=== PATIENT | female | born 1965 | race Caucasian/White ===

== ENCOUNTER → 2018-07-04 16:23 | Outpatient (CLI) | payer OTHER, SELFPAY ==
[2018-07-12 13:32] LABS: HPV APTIMA, High Risk Negative (Negative)
[2018-07-12 14:17] LABS: HPV Reflexed? YES, CHARGE PATIENT
== END ==
PROVIDERS: Visit Provider Obstetrics & Gynecology
DX: Z12.4 Encounter for screening for malignant neoplasm of cervix (principal)
CPT/HCPCS: 87624; 88175; G0145

== ENCOUNTER 2021-12-20 11:17 | Outpatient (CLI) | payer OTHER, SELFPAY ==
--- NOTE | 2021-12-20 11:23 | US_ITS ---
STUDY: ULTRASOUND OF THE FEMALE PELVIS - COMPLETE REASON FOR EXAM: Female, 56 years old. POST JUAN BLEEDING LMP: Patient is postmenopausal. TECHNIQUE: Transabdominal and Transvaginal TECHNICAL QUALITY: Adequate. COMPARISON: None. FINDINGS: The uterus is anteverted and is in a midline position. The uterus measures 8.3 cm x 5.7 cm x 4 cm. There is a Nabothian cyst of the cervix. The endometrium measures 4.2 mm in thickness, and is heterogeneous (striated). There is no demonstrated endometrial mass. Heterogeneous appearance of the uterine myometrium suggesting fibroid change of the lateral no focal fibroid is seen. I.U.D. - The patient does not have an I.U.D. The right ovary is visualized. The right ovary measures 1.9 cm x 1.1 cm x 0.9 cm. There is no right ovarian cyst or ovarian mass. There is no visualized right adnexal mass or complex lesion. There is normal arterial and normal venous vascularity. The left ovary is visualized. The left ovary measures 2.8 cm x 1.2 cm x 1.4 cm. There is no left ovarian cyst or ovarian mass. There is no visualized left adnexal mass or complex lesion. There is normal arterial and normal venous vascularity. There is no fluid in the cul-de-sac. The pre void volume of the bladder was 160 ml. US/Transvaginal Non- IMPRESSION: Heterogeneous appearance of the myometrium suggestive of fibroid change although no focal fibroid is seen. Electronically Signed: Talon Jacobson MD at 13:04 EDT ,
--- NOTE | 2021-12-20 11:32 | US_ITS ---
STUDY: ULTRASOUND OF THE FEMALE PELVIS - COMPLETE REASON FOR EXAM: Female, 56 years old. POST JUAN BLEEDING LMP: Patient is postmenopausal. TECHNIQUE: Transabdominal and Transvaginal TECHNICAL QUALITY: Adequate. COMPARISON: None. FINDINGS: The uterus is anteverted and is in a midline position. The uterus measures 8.3 cm x 5.7 cm x 4 cm. There is a Nabothian cyst of the cervix. The endometrium measures 4.2 mm in thickness, and is heterogeneous (striated). There is no demonstrated endometrial mass. Heterogeneous appearance of the uterine myometrium suggesting fibroid change of the lateral no focal fibroid is seen. I.U.D. - The patient does not have an I.U.D. The right ovary is visualized. The right ovary measures 1.9 cm x 1.1 cm x 0.9 cm. There is no right ovarian cyst or ovarian mass. There is no visualized right adnexal mass or complex lesion. There is normal arterial and normal venous vascularity. The left ovary is visualized. The left ovary measures 2.8 cm x 1.2 cm x 1.4 cm. There is no left ovarian cyst or ovarian mass. There is no visualized left adnexal mass or complex lesion. There is normal arterial and normal venous vascularity. There is no fluid in the cul-de-sac. The pre void volume of the bladder was 160 ml. US/Pelvic (Non ) IMPRESSION: Heterogeneous appearance of the myometrium suggestive of fibroid change although no focal fibroid is seen. Electronically Signed: Talon Jacobson MD at 13:04 EDT ,
== END 2021-12-20 23:59 | disposition home or self-care (01) ==
LOC: US 11:20
PROVIDERS: Referring Provider Physician Assistant; Visit Provider Physician Assistant
DX: N95.0 Postmenopausal bleeding (principal)
CPT/HCPCS: 76830; 76856

== ENCOUNTER 2022-01-04 13:14 | Outpatient (CLI) | payer OTHER, SELFPAY ==
--- NOTE | 2022-01-04 10:45 | EMB_PTH ---
PATIENT: MISTY ANDERSEN LOC: [facility] U#:[id number] AGE/SX: 56/F ROOM: RE01/04/[address]: Dr. Ronak Cho MD : [id number] BED: DIS: 01/04/2022 SPEC #: [id number] RECD: 01/04/22 14:45 STATUS: NATHANAEL TAYLER #: [id number] ANDRZEJ: 01/04/22 10:[address]: Ronak Cho DEPT: SURGICAL PATHOLOGY RECD BY: Manju Armenta Tissues: Endometrium, NOS Procedures: Surgery Specimen Level IV HEADER OPERATION: Endometrial biopsy PRE-OP DIAGNOSIS: PMB TISSUE SUBMITTED: Endometrial biopsy MICROSCOPIC DIAGNOSIS Endometrium, biopsy: Fragments of weakly proliferative endometrium with focal glandular breakdown. AM:halley 01/06/2022 MICROSCOPIC DESCRIPTION Slides are reviewed. GROSS DESCRIPTION Received in fixative is one container labeled with the patient's name and designated endometrial biopsy. The specimen consists of multiple fragments of conway mucoid tissue mixed with hemorrhagic soft tissue that in aggregate measure 2 x 2 x 0.2 cm. The specimen is totally submitted in one cassette. / SJ:halley 01/05/2022 TC:5 CPT: 85413
[2022-01-10 15:34] LABS: HPV Reflexed? NOT INDICATED
== END 2022-01-04 23:59 | disposition home or self-care (01) ==
LOC: LABSPEC 13:21
PROVIDERS: Visit Provider Obstetrics & Gynecology
DX: Z12.4 Encounter for screening for malignant neoplasm of cervix (principal); N95.0 Postmenopausal bleeding
CPT/HCPCS: 88175; 88305; G0145

== ENCOUNTER → 2023-07-26 | Outpatient (CLI) | payer OTHER, SELFPAY ==
--- NOTE | 2023-07-26 14:24 | BI_ITS ---
MAMMOGRAPHY - BILATERAL DIAGNOSTIC REASON FOR EXAM: Female, 57 years old. Six-month follow-up for left breast lump. PERTINENT HISTORY: Recent skin biopsy. TECHNIQUE: Digital bilateral breast jai (3D mammographic acquisition) in the CC and MLO projections. 2-D mediolateral oblique (MLO) and craniocaudad (CC) views of both breasts were obtained. CAD: Full Field Digital Mammography with Computer Added Detection was performed. COMPARISON: Comparison is made with prior outside examination June 15, 2022. FINDINGS: Breast Composition: There are scattered areas of fibroglandular density. There are no dominant masses or suspicious calcifications. No other significant abnormalities are identified. There has been no significant change since the prior study. BI/DIAG MAMM W/CAD, BILAT IMPRESSION: Stable bilateral diagnostic mammogram. With the patient''s history of a palpable lump in the slightly inferior central portion of the left breast, correlation with ultrasound is recommended. ASSESSMENT CATEGORY: BIRADS Category 0: Incomplete. Need additional imaging evaluation. A letter regarding these results will be sent to the patient by the facility within 30 days. Approximately 10% of breast cancers are not detected by mammography. A normal mammogram should not delay biopsy of a clinically suspicious abnormality. Electronically Signed: Talon Jacobson MD at 15:36 EDT ,
--- NOTE | 2023-07-26 14:24 | US_ITS ---
STUDY: ULTRASOUND BREAST - LEFT REASON FOR EXAM: Female, 57 years old. Six-month follow-up examination. TECHNIQUE: Axial and longitudinal images of the LEFT breast were performed with a high resolution ultrasound transducer. # OF IMAGES: 38 COMPARISON: Comparison is made with prior mammogram dated July 26, 2023 and prior sonogram dated January 25, 2023. FINDINGS: LEFT Breast: The region of the scar was examined with ultrasound. Postoperative scarring is seen. US/Breast Limited Unilateral IMPRESSION: Postoperative scarring is seen. ASSESSMENT CATEGORY: BIRADS Category 2: Benign. A letter regarding these results will be sent to the patient by the facility within 30 days. Electronically Signed: Talon Jacobson MD at 14:23 EDT ,
== END | disposition home or self-care (01) ==
PROVIDERS: PCP Physician Assistant; Referring Provider Surgery; Visit Provider Surgery
DX: R92.8 Other abnormal and inconclusive findings on diagnostic imaging of breast (principal); N64.59 Other signs and symptoms in breast
CPT/HCPCS: 76642; 77062; 77066; G0279

== ENCOUNTER → 2023-12-11 | Outpatient (CLI) | payer OTHER, SELFPAY ==
[2023-12-11 15:58] LABS: Absolute Lymphocyte Count 2.52 X10^3/uL (0.83-4.51); Absolute Neutrophil Count 3.6 X10^3/uL (2.0-7.7); Basophil# 0.11 X10^3/uL; Basophil% 1.5 % (0-1); Eosinophil# 0.59 X10^3/uL; Eosinophils% 8.1 % (0-5); Hematocrit 40.6 % (37-47); Hemoglobin 13.5 g/dL (12.0-15.0); Lymphocyte # 2.52 X10^3/ul (0.83-4.51); Lymphocyte % 34.7 % (19-41); Mean Corp Hgb Conc 33.3 g/dL (32-36); Mean Corpuscular Hgb 31.9 pg (27.0-32.0); Mean Platelet Vol. 9.7 fl (6.2-12.0); Monocyte# 0.46 X10^3/uL; Monocyte% 6.3 % (0-10); NRBC Flagged by Analyzer 0 % (0-5); Neutrophil # 3.57 X10^3/uL (2.7-7.7); Neutrophil % 49.1 % (47-70); Platelet Count 307 K/mm3 (150-450); RBC Distribution Width CV 12.9 % (11.6-14.6); RBC Distribution Width SD 45.5 fl (35.1-43.9); Red Blood Count 4.23 M/mm3 (4.2-5.4); White Blood Count 7.3 K/mm3 (4.4-11.0)
[2023-12-11 16:43] LABS: T4 Free Direct 0.83 ng/dL (0.76-1.46); Thyroid Stim Hormone (TSH) 0.89 uIU/mL (0.358-3.74)
[2023-12-11 16:55] LABS: Vitamin D,25 Hydroxy 39.5 ng/mL
--- OUTSIDE RECORDS SUMMARY | 2023-12-12 02:15 | XMS RPT_ITS | CCD ---
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 Name Role Phone MELISSA EUBANKS Attending Unavailab le FUENTES, VIRGIL J Primary Care Unavailable FUENTES, VIRGIL J Consulting Unavailable FUENTES, VIRGIL J Attending Unavailable FUENTES, VIRGIL J Admitting Unavailable PROVIDER, UNKNOWN Consulting Unavailable FUENTES, VIRGIL J Consulting Unavailable FUENTES, VIRGIL J Attending Unavailable FUENTES, VIRGIL J Admitting Unavailable FUENTES, VIRGIL J Primary Care Unavailable PROVIDER, UNKNOWN Consulting Unavailable NICHOLAS, MELISSA ELECTRICAL DESIGNER DRAFTER Admitting Unavailable NICHOLAS, MELISSA ELECTRICAL DESIGNER DRAFTER Primary Care Unavailable NICHOLAS, MELISSA ELECTRICAL DESIGNER DRAFTER Attending Unavailable FUENTES, VIRGIL J Consulting Unavailable PROVIDER, UNKNOWN Consulting Unavailable FUENTES, VIRGIL J Primary Care Unavailable FUENTES, VIRGIL J Consulting Unavailable FUENTES, VIRGIL J Attending Unavailable FUENTES, VIRGIL J Admitting Unavailable PROVIDER, UNKNOWN Consulting Unavailable Alfredo RODRIGUES, Virgil J Unavailable [phone] Laurie Fuentes PA-Cissa J Unavailable Dr. Carlos Paulson MD Unavailable General Surgery Provider Unavailable Unavail able Gastroenterology Provider Unavailable [facility] Unavailable Ingredient Handler/Gynecology Prov. Unavailable Un available Dr. Alisson Hutchison DPM Unavailable Sheela Barragan MD Unavailable Emy Edwards LPN Unavailable Willie Dutta MD Unavailable Gogoi (scribe), Hemanta Unavailable Unavaila Lis Griffin PA-C Unavailable Delfina RODRIGUES, Luis Alberto Escalona Unavailable Delfina MURILLO, Nishi L Unavailable Unavail able Igor MEASUREMENT PSYCHOLOGIST, Ellen Unavailable Unavailable Omaira MURILLO, Lis Rg Unavailable Unavaila ble Shaan MEASUREMENT PSYCHOLOGIST, Carrington Unavailable Unavailable Khurram MURILLO, Darling Unavailable Cristal MURILLO, Meredith Anne Unavailable Unavailable [place] MEASUREMENT PSYCHOLOGIST, Sheela Landin Unavailable Unavailab le [place] MEASUREMENT PSYCHOLOGIST, Elsy Bañuelos Unavailable Unavailab le Vamsi GUPTA, Ellen Unavailable Unavailable Vess MEASUREMENT PSYCHOLOGIST, Kesha L Unavailable Unavailable Wengerd MEASUREMENT PSYCHOLOGIST, Liliana Unavailable Unavailabl e Unavailable Unavailable Medications Current Medications Medication Drug Class(es) Dates Sig (Normalized) Sig (Original) apple cider vinegar 500 mg oral tablet (6 sources) cetirizine hydrochloride 10 mg oral capsule (6 sources) Histamine-1 Receptor Antagonist magnesium oxide 400 mg oral tablet (6 sources) 24 hr metoprolol succinate 25 mg extended release oral tablet (6 sources) beta-Adrenergic Judy Start: 11-30-2023 Completed/Discontinued Medications Medication Drug Class(es) Dates Sig (Normalized) Sig (Original) [id number] 200 actuat albuterol 0.09 mg/actuat metered dose inhaler (6 sources) beta2-Adrenergic Agonist Start: 08-22-2013 End: 11-29-2013 alendronic acid 35 mg oral tablet (6 sources) Bisphosphonate Start: 01-29-2020 End: 11-17-2021 ALPRAZolam 0.5 mg oral tablet (6 sources) Benzodiazepine Start: 03-14-2016 End: 08-14-2018 amoxicillin 500 mg oral capsule (6 sources) Penicillin-class Antibacterial Start: 02-01-2016 End: 02-11-2016 amoxicillin 875 mg / clavulanate 125 mg oral tablet (12 sources) Penicillin-class Antibacterial Start: 10-16-2022 End: 10-23-2022 Problems Problem Classification Problem Date Documented Da te Episodic/Chronic Abdominal hernia (20 sources) Hiatal hernia; Translations: [Diaphragmatic hernia without obstruction or gangrene] 09-03-2023 Episodic Abdominal pain (20 sources) Abdominal pain; Translations: [Unspecified abdominal pain] 11-24-2021 Episodic Acute bronchitis (18 sources) Acute bronchitis; Translations: [Acute bronchitis, unspecified] 08-22-2013 Episodic Administrative/social admission (12 sources) Issue of repeat prescriptions 07-31-2016 Episodic Allergic reactions (20 sources) Contact dermatitis and other eczema, unspecified cause; Translations: [Inflammatory dermatosis] 06-22-2011 Episodic Anxiety disorders (20 sources) Anxiety; Translations: [Anxiety disorder, unspecified] 09-03-2023 Chronic Contraceptive and procreative management (20 sources) Unspecified contraceptive management; Translations: [Encounter for removal of intrauterine contraceptive device] 06-23-2013 Episodic Disorders of lipid metabolism (20 sources) Hyperlipidemia, unspecified; Translations: [Hyperlipidemia] Onset: 09-03-2023 Chronic Essential hypertension (20 sources) Benign essential hypertension; Translations: [Essential (primary) hypertension] 09-03-2023 Chronic Fever of unknown origin (12 sources) Fever; Translations: [Fever, unspecified] 11-17-2021 Episodic Gastrointestinal hemorrhage (12 sources) Gastrointestinal hemorrhage; Translations: [Hemorrhage of anus and rectum] 06-03-2019 Episodic Headache; including migraine (6 sources) Daily headache; Translations: [Headache] 10-06-2014 Episodic Hemorrhoids (12 sources) Hemorrhoids; Translations: [Unspecified hemorrhoids] 09-03-2023 Episodic Immunizations and screening for infectious disease (12 sources) Needs influenza immunization; Translations: [Encounter for immunization] 09-03-2023 Episodic Inflammation; infection of eye (except that caused by tuberculosis or sexually transmitteddisease) (12 sources) Conjunctivitis; Translations: [Unspecified conjunctivitis] 12-22-2013 Episodic Inflammatory diseases of female pelvic organs (12 sources) Cyst of Bartholin's gland duct; Translations: [Cyst of Bartholin's gland] 09-03-2023 Episodic Lymphadenitis (12 sources) Axillary lymphadenopathy; Translations: [Localized enlarged lymph nodes] 09-03-2023 Episodic Malaise and fatigue (12 sources) Fatigue; Translations: [Other fatigue] 09-03-2023 Episodic Menopausal disorders (18 sources) Postmenopausal bleeding; Translations: [Postmenopausal bleeding] 09-03-2023 Chronic Neoplasms of unspecified nature or uncertain behavior (20 sources) Neoplasm of uncertain behavior of skin; Translations: [Neoplasm of uncertain behavior of skin] 06-03-2019 Episodic Nutritional deficiencies (20 sources) Vitamin D deficiency; Translations: [Vitamin D deficiency, unspecified] 09-03-2023 Chronic Osteoarthritis (6 sources) Osteoarthrosis, unspecified whether generalized or localized, hand 06-22-2011 Chronic Other aftercare (18 sources) Patient encounter status; Translations: [Other termite exterminator helper (current) drug therapy] 02-05-2019 Episodic Other aftercare (20 sources) Long-term (current) use of other medications 01-30-2012 Episodic Other bone disease and musculoskeletal deformities (20 sources) Osteopenia; Translations: [Other specified disorders of bone density and structure, unspecified site] 09-03-2023 Episodic Other connective tissue disease (6 sources) Muscle spasm of cervical muscle of neck; Translations: [Other muscle spasm] 01-28-2015 Episodic Other connective tissue disease (6 sources) Thumb joint painful on movement; Translations: [Pain in left finger(s)] 10-06-2014 Episodic Other connective tissue disease (6 sources) Lateral epicondylitis 03-11-2013 Episodic Other ear and sense organ disorders (6 sources) Tinnitus; Translations: [Tinnitus, unspecified ear] 10-28-2014 Episodic Other female genital disorders (20 sources) History of dysplasia of cervix; Translations: [Personal history of cervical dysplasia] 09-03-2023 Episodic Other gastrointestinal disorders (20 sources) Constipation; Translations: [Constipation, unspecified] 09-03-2023 Episodic Other gastrointestinal disorders (18 sources) Abdominal bloating; Translations: [Abdominal distension (gaseous)] 09-03-2023 Episodic Other lower respiratory disease (6 sources) Angiotensin-converting -enzyme inhibitor adverse reaction; Translations: [Cough] 11-29-2013 Episodic Other non-traumatic joint disorders (12 sources) Joint pain; Translations: [Pain in unspecified joint] 06-21-2020 Episodic Other screening for suspected conditions (not mental disorders or infectious disease) (20 sources) Encounter for screening for diabetes mellitus; Translations: [Ultrasonography of breast abnormal] Onset: 3 Episodic Other skin disorders (18 sources) Lichen sclerosus et atrophicus; 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 Other skin disorders (20 sources) Seborrheic keratosis; Translations: [Other seborrheic keratosis] 11-15-2015 Episodic Other skin disorders (12 sources) Nodule of subcutaneous tissue of foot; Translations: [Localized swelling, mass and lump, unspecified lower limb] 09-03-2023 Episodic Other skin disorders (18 sources) Nodule of subcutaneous tissue of left thumb; Translations: [Localized swelling, mass and lump, left upper limb] 09-03-2023 Episodic Other skin disorders (18 sources) Unspecified hypertrophic and atrophic conditions of skin 10-05-2011 Episodic Other upper respiratory infections (12 sources) Sinusitis; Translations: [Chronic sinusitis, unspecified] 09-03-2023 Chronic Other upper respiratory infections (20 sources) Upper respiratory infection; Translations: [Acute upper respiratory infection, unspecified] 08-31-2023 Episodic Otitis media and related conditions (12 sources) Dysfunction of right eustachian tube; Translations: [Unspecified Eustachian tube disorder, right ear] 09-03-2023 Episodic Prolapse of female genital organs (12 sources) Herniation of rectum into vagina; Translations: [Rectocele] 09-03-2023 Chronic Spondylosis; intervertebral disc disorders; other back problems (20 sources) Chronic neck pain; Translations: [Cervicalgia] 09-03-2023 Episodic Unclassified (6 sources) 09-03-2023 Unclassified (6 sources) 09-03-2023 Unclassified (6 sources) 09-03-2023 Urinary tract infections (12 sources) Urinary tract infectious disease; Translations: [Urinary tract infection, site not specified] 02-10-2019 Episodic Results Test Name Value Interpretation Reference Range Facil ity Vital Signs Date Time Vital Sign Value Performing Clinician Facility 09-03-2023 14:22-0500 Body height 157.48 cm Sheela Pinzon LPN [email or web address]. 09-03-2023 14:22-0500 Body mass index (BMI) [Ratio] 26.52 kg/m2 Sheela Pinzon LPN [employer] [facility] [employer] 09-03-2023 14:22-0500 Body surface area Derived from formula 1.67 m2 Sheela Pinzon LPN [employer] [facility] [email or web address]. 09-03-2023 14:22-0500 Body weight 65.77 kg Sheela M Alberta BATES [facility], [facility].; [employer] [facility]. 09-03-2023 14:050 Diastolic blood pressure 87 mm[Hg] Sheela Mushtaq Pinzon LPN [facility], [facility].; [employer] 09-03-2023 14:050 Heart rate 77 /min Sheela Pinzon LPN [facility], [facility].; [employer], [facility]. 09-03-2023 14:220500 Systolic blood pressure 124 mm[Hg] Sheela M Vera h [facility], [facility].; [employer] [facility], [facility]. 08-31-2023 14:17050 Body height 157.48 cm Lis Castano RN [facility], [facility].; [employer], [employer]. 08-31-2023 14:170500 Body mass index (BMI) [Ratio] 26.7 kg/m2 Lis Castano RN [place] [employer] [facility].; [employer]. 08-31-2023 14:17-050 Body surface area Derived from formula 1.67 m2 Lis Castano RN [place] [employer] [facility].; [employer], [employer]. 08-31-2023 14:17-050 Body temperature 98.5 [degF] Lis Castano RN [place] [employer] [facility].; Pat [employer]. 08-31-2023 14:050 Body weight 66.23 kg Lis Castano RN [place] [employer] [facility].; [employer], [employer]. 08-31-2023 14:170500 Diastolic blood pressure 77 mm[Hg] Lis Castano RN [place] [employer] [facility].; [employer]. 08-31-2023 14:17-0500 Heart rate 71 /min Lis Castano RN [place] [employer] [facility].; [employer], [employer]. 08-31-2023 14:17-0500 Inhaled oxygen concentration 20 % Lis Castano RN [place] [employer] [facility].; [employer]. 08-31-2023 14:17-0500 SaO2% (BldA) [Mass fraction] 97 % Lis [facility].; [employer] [facility]. 08-31-2023 14:17-0500 Systolic blood pressure 114 mm[Hg] Lis mills RN [place] [employer] [facility].; [employer]. 08-02-2023 14:07-0400 Body height 157.48 cm Sheela Englishach [facility] [employer] [facility].; [email or web address]. 08-02-2023 14:07-0400 Body mass index (BMI) [Ratio] 26.7 kg/m2 Sheela Soareslabach [facility] [employer]. 08-02-2023 14:07-0400 Body surface area Derived from formula 1.67 m2 [facility].; [employer]. 08-02-2023 14:07-0400 Body weight 66.23 kg Sheela Englishach [facility].; [email or web address]. 08-02-2023 14:07-0400 Diastolic blood pressure 79 mm[Hg] Sheela Soareslabach MEASUREMENT PSYCHOLOGIST [place] [employer] [facility].; [employer]. 08-02-2023 14:07-0400 Heart rate 72 /min Sheela Englishach MEASUREMENT PSYCHOLOGIST [employer] [facility].; [employer]. 08-02-2023 14:07-0400 Systolic blood pressure 120 mm[Hg] Sheela Englishac h MEASUREMENT PSYCHOLOGIST [employer] [facility].; [email or web address]. 04-16-2023 10:48-0400 Body height 157.48 cm Sheela Englishach MEASUREMENT PSYCHOLOGIST [place] [employer] [facility].; [employer]. 04-16-2023 10:48-0400 Body mass index (BMI) [Ratio] 27.25 kg/m2 Sheela Soareslabach MEASUREMENT PSYCHOLOGIST [employer]. 07-17-2023 10:48-0400 Body surface area Derived from formula 1.69 m2 Sheela Landin [place] [facility], [facility].; [facility], [facility]. 04-16-2023 10:48-0400 Body temperature 98 [degF] Sheela Landin [place] [facility], [facility].; [facility], [facility] 04-16-2023 10:48-0400 Body weight 67.59 kg Sheela Landin [place] [facility], [facility].; [facility], [facility]. 04-16-2023 10:48-0400 Diastolic blood pressure 78 mm[Hg] Sheela M [place] [facility], [facility].; [facility], [facility]. 04-16-2023 10:48-0400 Heart rate 62 /min Sheela Landin [place] [facility], [facility].; [facility], [facility]. 04-16-2023 10:48-0400 Systolic blood pressure 129 mm[Hg] Sheela Landin Amadorac h [facility] Pat [employer] [facility], [facility]. 10-16-2022 11:15-0500 Body height 157.48 cm Ellen Agustin MA [facility], [facility].; [facility], [facility]. 10-16-2022 11:15-0500 Body mass index (BMI) [Ratio] 27.25 kg/m2 Ellen Agustin MA [facility], [facility].; [facility], [facility] 10-16-2022 11:15-0500 Body surface area Derived from formula 1.69 m2 Ellen Agustin MA [facility], [facility].; [place] [employer] [facility], [facility]. 10-16-2022 11:15-0500 Body temperature 97.7 [degF] Ellen Agustin MA [facility], [facility].; [place] [employer] [facility], [facility]. 10-16-2022 11:15-0500 Body weight 67.59 kg Ellen Agustin MA [facility], [facility].; [employer] 10-16-2022 11:15-0500 Diastolic blood pressure 102 mm[Hg] Ellen Agustin MA [facility], [facility] [employer], [facility]. 10-16-2022 11:15-0500 Heart rate 94 /min Ellen Agustin MA [facility], [facility].; [employer] [facility]. 10-16-2022 11:15-0500 Inhaled oxygen concentration 20 % Ellen Agustin MA [facility], [facility].; [place] [employer] [facility], [facility]. 10-16-2022 11:15-0500 SaO2% (BldA) [Mass fraction] 96 % Ellen Agustin MA [facility], [facility].; [place] [employer] [facility], [facility]. 10-16-2022 11:15-0500 Systolic blood pressure 147 mm[Hg] Ellen Agustin MA [facility], [facility].; [employer] [facility], [facility]. 08-23-2022 16:16-0500 Body height 157.48 cm Ellen Costa LPN [facility], [facility].; [employer], [facility]. 08-23-2022 16:16-0500 Body mass index (BMI) [Ratio] 26.52 kg/m2 Ellen Costa LPN [facility], [facility].; [employer] [facility], [facility]. 08-23-2022 16:16-0500 Body surface area Derived from formula 1.67 m2 Ellen Costa LPN [facility], [facility].; [place] [employer] [facility]. 08-23-2022 16:16-0500 Body weight 65.77 kg Ellen Costa LPN [facility], [facility].; [employer] [facility], [facility]. 08-23-2022 16:16-0500 Diastolic blood pressure 77 mm[Hg] Ellen Costa LPN [facility], [facility].; [employer] [facility]. 08-23-2022 16:16-0500 Heart rate 84 /min Ellen Costa LPN [place] [employer] [facility], [facility].; [employer] [facility]. 08-23-2022 16:16-0500 Systolic blood pressure 130 mm[Hg] Ellen Costa LPN [facility], [facility].; [employer], [facility]. 06-07-2022 08:12-0400 Body height 157.48 cm Sheela Pinzon LPN [facility], [facility].; [employer] [facility]. 06-07-2022 08:12-0400 Body mass index (BMI) [Ratio] 25.61 kg/m2 Sheela M [place] MEASUREMENT PSYCHOLOGIST [employer] [facility] [employer], [facility]. 06-07-2022 08:12-0400 Body surface area Derived from formula 1.64 m2 Sheela M [place] MEASUREMENT PSYCHOLOGIST [facility], Inc.; [employer] 06-07-2022 08:12-0400 Body weight 63.5 kg Sheela Mushtaq [place] MEASUREMENT PSYCHOLOGIST [facility], [facility].; [employer], [facility]. 06-07-2022 08:12-0400 Diastolic blood pressure 77 mm[Hg] Sheela M [place] MEASUREMENT PSYCHOLOGIST [facility] [employer] [facility] [employer], [facility]. 06-07-2022 08:12-0400 Heart rate 80 /min Sheela M [place] MEASUREMENT PSYCHOLOGIST [place] [employer] [facility] [employer], [facility]. 06-07-2022 08:12-0400 Systolic blood pressure 122 mm[Hg] Sheela M Schlabac h MEASUREMENT PSYCHOLOGIST [place] [employer] [facility], [facility] [employer] 11-30-2021 13:43-0500 Body height 157.48 cm Sheela M [place] MEASUREMENT PSYCHOLOGIST [employer] [facility] [employer] 11-30-2021 13:43-0500 Body mass index (BMI) [Ratio] 25.61 kg/m2 Sheela M [place] MEASUREMENT PSYCHOLOGIST [employer] [facility], [facility] [employer] 11-30-2021 13:43-0500 Body surface area Derived from formula 1.64 m2 Sheela M [place] MEASUREMENT PSYCHOLOGIST [employer] [facility], [facility] [employer], [employer]. 11-30-2021 13:43-0500 Body weight 63.5 kg Sheela M [place] MEASUREMENT PSYCHOLOGIST [employer], [employer]. 11-30-2021 13:43-0500 Diastolic blood pressure 84 mm[Hg] Sheela M [place] MEASUREMENT PSYCHOLOGIST [employer] 11-30-2021 13:43-0500 Heart rate 94 /min Sheela M [place] [facility] [email or web address]. 11-30-2021 13:43-0500 Systolic blood pressure 128 mm[Hg] Sheela Landin Rodgerlabac h MEASUREMENT PSYCHOLOGIST [employer] [facility], [facility].; [employer] 11-24-2021 08:42-0500 Body height 157.48 cm Sheela Landin [place] MEASUREMENT PSYCHOLOGIST [place] [employer] [facility], [facility]. 11-24-2021 08:42-0500 Body mass index (BMI) [Ratio] 25.42 kg/m2 Sheela Landin [place] MEASUREMENT PSYCHOLOGIST [employer] [facility] [email or web address]. 11-24-2021 08:42-0500 Body surface area Derived from formula 1.64 m2 Sheela Landin Laberta [facility] [employer] 11-24-2021 08:42-0500 Body temperature 98.8 [degF] Sheela Landin [place] MEASUREMENT PSYCHOLOGIST [employer] 11-24-2021 08:42-0500 Body weight 63.05 kg Sheela Landin [place] MEASUREMENT PSYCHOLOGIST [email or web address]. 11-24-2021 08:42-0500 Diastolic blood pressure 82 mm[Hg] Sheela Landin [place] MEASUREMENT PSYCHOLOGIST [employer] [facility], [facility] [employer] 11-24-2021 08:42-0500 Heart rate 78 /min Sheela Mushtaq EnglishAlberta MEASUREMENT PSYCHOLOGIST [employer] [facility], [facility] 11-24-2021 08:42-0500 Systolic blood pressure 121 mm[Hg] Sheela Landin Rodgerlabac h MEASUREMENT PSYCHOLOGIST [email or web address]. 11-17-2021 13:29-0500 Body height 157.48 cm Sheela Landin [place] [facility] [employer] 11-17-2021 13:29-0500 Body mass index (BMI) [Ratio] 25.61 kg/m2 Sheela Landin [place] MEASUREMENT PSYCHOLOGIST [employer] 11-17-2021 13:29-0500 Body surface area Derived from formula 1.64 m2 Sheela Landin [place] MEASUREMENT PSYCHOLOGIST [employer] [facility], [facility] [employer], [employer]. 11-17-2021 13:29-0500 Body weight 63.5 kg Sheela Soareslabach MEASUREMENT PSYCHOLOGIST [employer] [facility], [facility] [employer] 11-17-2021 13:29-0500 Diastolic blood pressure 71 mm[Hg] Sheela Soareslabach MEASUREMENT PSYCHOLOGIST [employer] [facility], [facility] [employer] 11-17-2021 13:29-0500 Heart rate 93 /min Sheela Landin [place] MEASUREMENT PSYCHOLOGIST [employer], [employer]. 11-17-2021 13:29-0500 Systolic blood pressure 120 mm[Hg] Sheela Landin Rodgerlabac h [facility] [employer], [employer]. 08-15-2021 11:32-0500 Body height 157.48 cm Sheela Landin [place] [facility] [employer] 08-15-2021 11:32-0500 Body mass index (BMI) [Ratio] 24.51 kg/m2 Sheela Soareslabach [facility] [facility] [employer] [employer], [employer]. 08-15-2021 11:32-0500 Body surface area Derived from formula 1.61 m2 Sheela Soareslabach MEASUREMENT PSYCHOLOGIST [employer], [employer]. 08-15-2021 11:32-0500 Body temperature 99 [degF] Sheela Soareslabach MEASUREMENT PSYCHOLOGIST [employer], [employer]. 08-15-2021 11:32-0500 Body weight 60.78 kg Sheela Landin [place] MEASUREMENT PSYCHOLOGIST [employer], [employer]. 08-15-2021 11:32-0500 Diastolic blood pressure 88 mm[Hg] Shelea Landin [place] MEASUREMENT PSYCHOLOGIST [employer] 08-15-2021 11:32-0500 Heart rate 92 /min Sheela Landin [place] MEASUREMENT PSYCHOLOGIST [employer], [employer]. 08-15-2021 11:32-0500 Inhaled oxygen concentration 20 % Sheela Landin [place] MEASUREMENT PSYCHOLOGIST [facility], [facility].; [place] [employer] [facility]. 08-15-2021 11:32-0500 SaO2% (BldA) [Mass fraction] 96 % Sheela Landin [place] MEASUREMENT PSYCHOLOGIST [place] [employer] [facility], [facility].; [employer] [facility]. 08-15-2021 11:32-0500 Systolic blood pressure 133 mm[Hg] Sheela Landin Schlabac h MEASUREMENT PSYCHOLOGIST [place] [employer] [facility], [facility].; [employer] [facility]. 07-05-2020 09:06-0400 Body height 157.48 cm Neilee L Vess MEASUREMENT PSYCHOLOGIST [employer] [facility], [facility].; [employer] [facility]. 07-05-2020 09:06-0400 Body mass index (BMI) [Ratio] 25.61 kg/m2 Neilee L Vess MEASUREMENT PSYCHOLOGIST [place] [employer] [facility], [facility].; [employer] [facility]. 07-05-2020 09:06-0400 Body surface area Derived from formula 1.64 m2 Neilee L Vess MEASUREMENT PSYCHOLOGIST [place] [employer] [facility].; [employer]. 07-05-2020 09:06-0400 Body temperature 99.2 [degF] Neilee L Vess MEASUREMENT PSYCHOLOGIST [employer] [facility], [facility].; [employer], [facility]. 07-05-2020 09:06-0400 Body weight 63.5 kg Neilee L Vess MEASUREMENT PSYCHOLOGIST [employer] [facility], [facility].; [employer] [facility]. 07-05-2020 09:06-0400 Diastolic blood pressure 97 mm[Hg] Neilee L Vess MEASUREMENT PSYCHOLOGIST [place] [employer] [facility].; [employer] [facility]. 07-05-2020 09:06-0400 Heart rate 85 /min Neilee L Vess MEASUREMENT PSYCHOLOGIST [employer] [facility].; [employer] [facility]. 07-05-2020 09:06-0400 Systolic blood pressure 142 mm[Hg] Neilee L Vess MEASUREMENT PSYCHOLOGIST [employer] [facility], [facility].; [employer]. 06-21-2020 13:21-0400 Body height 157.48 cm Neilee L Vess MEASUREMENT PSYCHOLOGIST [employer] [facility].; [email or web address]. 06-21-2020 13:21-0400 Body mass index (BMI) [Ratio] 25.24 kg/m2 Neilee L Vess MEASUREMENT PSYCHOLOGIST [email or web address]. 06-21-2020 13:21-0400 Body surface area Derived from formula 1.63 m2 Neilee L Vess MEASUREMENT PSYCHOLOGIST [email or web address]. 06-21-2020 13:0400 Body weight 62.6 kg Neilee L Vess MEASUREMENT PSYCHOLOGIST [email or web address].; [email or web address]. 06-21-2020 13:21-0400 Diastolic blood pressure 81 mm[Hg] Neilee L Vess MEASUREMENT PSYCHOLOGIST [email or web address]. 06-21-2020 13:210400 Heart rate 78 /min Neilee L Vess MEASUREMENT PSYCHOLOGIST [employer], [employer].; [email or web address]. 06-21-2020 13:21-0400 Systolic blood pressure 125 mm[Hg] Neilee L Vess MEASUREMENT PSYCHOLOGIST [email or web address].; [email or web address]. 09-11-2019 14:56-0500 Body height 157.48 cm Neilee L Vess MEASUREMENT PSYCHOLOGIST [employer], [employer].; [email or web address]. 09-11-2019 14:56-0500 Body mass index (BMI) [Ratio] 24.51 kg/m2 Neilee L Vess MEASUREMENT PSYCHOLOGIST [email or web address]. 09-11-2019 14:56-0500 Body surface area Derived from formula 1.61 m2 Neilee L Vess MEASUREMENT PSYCHOLOGIST [email or web address].; [email or web address]. 09-11-2019 14:56-0500 Body temperature 98.6 [degF] Neilee L Vess MEASUREMENT PSYCHOLOGIST [employer], [employer].; [email or web address]. 09-11-2019 14:56-0500 Body weight 60.78 kg Neilee L Vess MEASUREMENT PSYCHOLOGIST [email or web address].; [email or web address]. 09-11-2019 14:56-0500 Diastolic blood pressure 77 mm[Hg] Neilee L Vess MEASUREMENT PSYCHOLOGIST [email or web address].; [employer] 09-11-2019 14:56-0500 Heart rate 75 /min Kesha Shaw [facility] [employer] [facility], Inc.; [employer], [employer] 09-11-2019 14:56-0500 Systolic blood pressure 122 mm[Hg] [facility], Inc.; [employer], [employer] 06-03-2019 14:23-0400 Body height 157.48 cm [facility]sy [facility], Inc.; [employer], [employer] 06-03-2019 14:23-0400 Body mass index (BMI) [Ratio] 24.69 kg/m2 [facility] [employer], [employer] 06-03-2019 14:23-0400 Body surface area Derived from formula 1.62 m2 [facility], Inc.; [employer], Inc. 06-03-2019 14:23-0400 Body weight 61.24 kg [facility]sy [facility] [employer], [employer] 06-03-2019 14:23-0400 Diastolic blood pressure 80 mm[Hg] [facility]sy [facility] [employer], [employer] 06-03-2019 14:23-0400 Heart rate 76 /min [facility], Inc.; [employer], Inc[employer] 06-03-2019 14:23-0400 Systolic blood pressure 133 mm[Hg] Elsy Kay MEASUREMENT PSYCHOLOGIST [employer] [facility], Inc.; [employer], [employer]. 02-10-2019 15:10-0400 Body height 157.48 cm [facility] [employer], [employer] 02-10-2019 15:10-0400 Body mass index (BMI) [Ratio] 25.61 kg/m2 Elsy Shay MEASUREMENT PSYCHOLOGIST [employer] 02-10-2019 15:10-0400 Body surface area Derived from formula 1.64 m2 Elsy Shay MEASUREMENT PSYCHOLOGIST [employer] 02-10-2019 15:10-0400 Body temperature 97.3 [degF] Elsy Shay MEASUREMENT PSYCHOLOGIST [employer] 02-10-2019 15:10-0400 Body weight 63.5 kg Elsy Shay [facility] [employer] 02-10-2019 15:10-0400 Diastolic blood pressure 93 mm[Hg] Elsy Shay [facility] [employer] 02-10-2019 15:10-0400 Heart rate 79 /min Elsy Shay [facility] [employer].; [employer], [employer] 02-10-2019 15:10-0400 Systolic blood pressure 141 mm[Hg] Elsy Kay [facility] [employer].; [employer] 01-07-2019 14:50-0400 Body height 157.48 cm Neilee L Vess [facility] [employer] 01-07-2019 14:50-0400 Body mass index (BMI) [Ratio] 25.24 kg/m2 Neilee L Vess MEASUREMENT PSYCHOLOGIST [employer] 01-07-2019 14:50-0400 Body surface area Derived from formula 1.63 m2 Neilee L Vess MEASUREMENT PSYCHOLOGIST [employer] 01-07-2019 14:50-0400 Body temperature 98.4 [degF] Neilee L Vess MEASUREMENT PSYCHOLOGIST [employer].; [employer] 01-07-2019 14:50-0400 Body weight 62.6 kg Neilee L Vess MEASUREMENT PSYCHOLOGIST [employer].; [employer], [employer] 01-07-2019 14:50-0400 Diastolic blood pressure 73 mm[Hg] Neilee L Vess MEASUREMENT PSYCHOLOGIST [employer].; [employer], [employer] 01-07-2019 14:50-0400 Heart rate 75 /min Neilee L Vess MEASUREMENT PSYCHOLOGIST [employer].; [email or web address]. 01-07-2019 14:50-0400 Systolic blood pressure 115 mm[Hg] Neilee L Vess MEASUREMENT PSYCHOLOGIST [email or web address]. 08-14-2018 13:27-0500 Body height 157.48 cm Neilee L Vess MEASUREMENT PSYCHOLOGIST [email or web address]. 08-14-2018 13:27-0500 Body mass index (BMI) [Ratio] 23.78 kg/m2 Neilee L Vess MEASUREMENT PSYCHOLOGIST [email or web address]. 08-14-2018 13:27-0500 Body surface area Derived from formula 1.59 m2 Neilee L Vess MEASUREMENT PSYCHOLOGIST [employer], [employer]. 08-14-2018 13:27-0500 Body weight 58.97 kg Neilee L Vess MEASUREMENT PSYCHOLOGIST [employer], [employer].; [email or web address]. 08-14-2018 13:27-0500 Diastolic blood pressure 65 mm[Hg] Neilee L Vess MEASUREMENT PSYCHOLOGIST [employer], [employer].; [email or web address]. 08-14-2018 13:27-0500 Heart rate 70 /min Neilee L Vess MEASUREMENT PSYCHOLOGIST [employer], [employer].; [email or web address]. 08-14-2018 13:27-0500 Systolic blood pressure 109 mm[Hg] Neilee L Vess MEASUREMENT PSYCHOLOGIST [email or web address]. 06-04-2018 14:02-0400 Body height 157.48 cm Neilee L Vess MEASUREMENT PSYCHOLOGIST [employer].; [email or web address]. 06-04-2018 14:02-0400 Body mass index (BMI) [Ratio] 24.14 kg/m2 Neilee L Vess MEASUREMENT PSYCHOLOGIST [employer], [employer].; [email or web address]. 06-04-2018 14:02-0400 Body surface area Derived from formula 1.6 m2 Neilee L Vess MEASUREMENT PSYCHOLOGIST [employer], [employer].; [email or web address]. 06-04-2018 14:02-0400 Body temperature 99.1 [degF] Neilee L Vess MEASUREMENT PSYCHOLOGIST [email or web address]. 06-04-2018 14:02-0400 Body weight 59.88 kg Neilee L Vess MEASUREMENT PSYCHOLOGIST [employer].; [email or web address]. 06-04-2018 14:02-0400 Diastolic blood pressure 84 mm[Hg] Neilee L Vess MEASUREMENT PSYCHOLOGIST [employer].; [employer], [employer]. 06-04-2018 14:02-0400 Heart rate 80 /min Neilee L Vess MEASUREMENT PSYCHOLOGIST [email or web address]. 06-04-2018 14:02-0400 Systolic blood pressure 127 mm[Hg] Neilee L Vess MEASUREMENT PSYCHOLOGIST [employer].; [employer], [employer]. 06-19-2017 11:30-0400 Body height 157.48 cm Neilee L Vess MEASUREMENT PSYCHOLOGIST [email or web address]. 06-19-2017 11:30-0400 Body mass index (BMI) [Ratio] 26.52 kg/m2 Neilee L Vess MEASUREMENT PSYCHOLOGIST [employer].; [employer], [employer]. 06-19-2017 11:30-0400 Body surface area Derived from formula 1.67 m2 Neilee L Vess MEASUREMENT PSYCHOLOGIST [employer], [employer].; [employer], [employer]. 06-19-2017 11:30-0400 Body weight 65.77 kg Neilee L Vess MEASUREMENT PSYCHOLOGIST [employer], [employer].; [email or web address]. 06-19-2017 11:30-0400 Diastolic blood pressure 86 mm[Hg] Neilee L Vess MEASUREMENT PSYCHOLOGIST [employer].; [email or web address]. 06-19-2017 11:30-0400 Heart rate 89 /min Neilee L Vess MEASUREMENT PSYCHOLOGIST [email or web address]. 06-19-2017 11:30-0400 Systolic blood pressure 135 mm[Hg] Neilee L Vess MEASUREMENT PSYCHOLOGIST [employer].; [email or web address]. 04-04-2017 11:11-0400 Body height 157.48 cm Meredith Bee RN [employer].; [email or web address]. 04-04-2017 11:110400 Body mass index (BMI) [Ratio] 25.81 kg/m2 Meredith Bee RN [email or web address].; [email or web address]. 04-04-2017 11:110400 Body surface area Derived from formula 1.65 m2 Meredith Bee RN [email or web address].; [email or web address]. 04-04-2017 11:110400 Body temperature 98.2 [degF] Meredith Bee RN [email or web address].; [email or web address]. 04-04-2017 11:110400 Body weight 64 kg Meredith Bee RN [email or web address].; [email or web address]. 04-04-2017 11:110400 Diastolic blood pressure 69 mm[Hg] Meredith Bee RN [employer].; [employer]. 04-04-2017 11:110400 Heart rate 84 /min Meredith Bee RN [employer].; [employer]. 04-04-2017 11:110400 Systolic blood pressure 118 mm[Hg] Meredith Bee RN [email or web address].; [email or web address]. 10-04-2016 14:190500 Body height 157.48 cm Meredith Bee RN [email or web address].; [email or web address]. 10-04-2016 14:190500 Body mass index (BMI) [Ratio] 26.79 kg/m2 Meredith Bee RN [employer].; [employer]. 10-04-2016 14:190500 Body surface area Derived from formula 1.67 m2 Meredith Bee RN [email or web address].; [email or web address]. 10-04-2016 14:0500 Body temperature 98.8 [degF] Meredith Bee RN [email or web address].; [employer]. 10-04-2016 14:190500 Body weight 66.45 kg Meredith Bee RN [employer].; [employer]. 10-04-2016 14:19-0500 Diastolic blood pressure 95 mm[Hg] Meredith Bee RN [employer].; [employer]. 10-04-2016 14:19-0500 Heart rate 75 /min Meredith Bee RN [employer].; [employer]. 10-04-2016 14:19-0500 Systolic blood pressure 141 mm[Hg] Meredith Bee RN [employer].; [employer]. 08-15-2016 14:43-0500 Body weight 66.23 kg [employer] Jemal Pin or Peg PA-C Work Phone: [employer].; [email or web address]. 08-15-2016 14:43-0500 Diastolic blood pressure 82 mm[Hg] [employer] Jemal Pin or Peg PA-C Work Phone: [employer].; [email or web address]. 08-15-2016 14:43-0500 Heart rate 84 /min [employer] Jemal Pin [employer] Peg PA-C Work Phone: [employer].; [email or web address]. 08-15-2016 14:43-0500 Systolic blood pressure 138 mm[Hg] [employer] Jemal Pin or Peg PA-C Work Phone: [employer].; [email or web address]. 02-01-2016 11:52-0400 Body height 157.48 cm Lis Castano RN [email or web address].; [email or web address]. 02-01-2016 11:52-0400 Body mass index (BMI) [Ratio] 25.79 kg/m2 Lis Castano RN [email or web address].; [email or web address]. 02-01-2016 11:52-0400 Body surface area Derived from formula 1.65 m2 Lis Castano RN [email or web address].; [email or web address]. 02-01-2016 11:52-0400 Body temperature 99.4 [degF] Lis Castano RN [employer].; [employer]. 02-01-2016 11:52-0400 Body weight 63.96 kg Lis Castano RN [facility] [employer] [facility].; [employer]. 02-01-2016 11:52-0400 Diastolic blood pressure 91 mm[Hg] Lis Castano RN [facility] [employer] [facility].; [employer]. 02-01-2016 11:52-0400 Heart rate 106 /min Lis Castano RN [facility] [employer] [facility].; [employer]. 02-01-2016 11:52-0400 Inhaled oxygen concentration 20 % Lis Castano RN [facility].; [employer]. 02-01-2016 11:52-0400 SaO2% (BldA) [Mass fraction] 97 % Lis Castano RN [employer] [facility].; [employer]. 02-01-2016 11:52-0400 Systolic blood pressure 141 mm[Hg] Lis mills RN [employer].; [employer]. 11-15-2015 12:30-0500 Body height 160.02 cm Lis Castano RN [employer].; [employer]. 11-15-2015 12:30-0500 Body mass index (BMI) [Ratio] 24.98 kg/m2 Lis Castano RN [employer].; [employer]. 11-15-2015 12:30-0500 Body surface area Derived from formula 1.67 m2 Lis Castano RN [employer].; [employer]. 11-15-2015 12:30-0500 Body temperature 98.6 [degF] Lis Castano RN [employer].; [employer]. 11-15-2015 12:30-0500 Body weight 63.96 kg Lis Castano RN [employer].; [employer]. 11-15-2015 12:30-0500 Diastolic blood pressure 86 mm[Hg] Lis Castano RN [employer].; [employer]. 11-15-2015 12:30-0500 Heart rate 80 /min Lis Castano RN [place] [employer]. 11-15-2015 12:30-0500 Systolic blood pressure 136 mm[Hg] Lis mills RN [place] [employer]. 10-26-2015 14:19-0500 Body height 160.02 cm Sheela Barragan MD Work Phone: [employer].; [email or web address] 10-26-2015 14:19-0500 Body mass index (BMI) [Ratio] 24.27 kg/m2 Sheela Barragan MD Work Phone: [employer].; [employer] 10-26-2015 14:19-0500 Body surface area Derived from formula 1.65 m2 Sheela Barragan MD Work Phone: [employer].; [employer]. 10-26-2015 14:19-0500 Body weight 62.14 kg Sheela Barragan MD Work Phone: [employer].; [email or web address] 10-26-2015 14:19-0500 Diastolic blood pressure 92 mm[Hg] Sheela Barragan MD Work Phone: [employer].; [email or web address]. 10-26-2015 14:19-0500 Heart rate 87 /min Sheela Barragan MD Work Phone: [employer].; [email or web address]. 10-26-2015 14:19-0500 Systolic blood pressure 148 mm[Hg] Sheela Barragan MD Work Phone: [employer].; [employer]. 07-19-2015 14:23-0400 Body height 157.48 cm Sheela Barragan MD Work Phone: [employer].; [employer] 07-19-2015 14:23-0400 Body mass index (BMI) [Ratio] 24.69 kg/m2 Sheela Barragan MD Work Phone: [employer].; [email or web address]. 07-19-2015 14:23-0400 Body surface area Derived from formula 1.62 m2 Sheela Barragan MD Work Phone: [employer].; [email or web address]. 07-19-2015 14:23-0400 Body weight 61.24 kg Sheela Barragan MD Work Phone: [employer].; [email or web address]. 07-19-2015 14:23-0400 Diastolic blood pressure 90 mm[Hg] Sheela Barragan MD Work Phone: [employer].; [email or web address]. 07-19-2015 14:23-0400 Heart rate 82 /min Sheela Barragan MD Work Phone: [employer].; [email or web address]. 07-19-2015 14:23-0400 Systolic blood pressure 152 mm[Hg] Sheela Barragan MD Work Phone: [employer].; [email or web address]. 01-28-2015 14:08-0400 Body height 157.48 cm Meredith Bee RN [employer].; [email or web address] 01-28-2015 14:08-0400 Body mass index (BMI) [Ratio] 24.6 kg/m2 Meredith Bee RN [employer].; [employer]. 01-28-2015 14:08-0400 Body surface area Derived from formula 1.62 m2 Meredith Bee RN [employer].; [employer]. 01-28-2015 14:08-0400 Body temperature 98.6 [degF] Meredith Bee RN [employer].; [employer]. 01-28-2015 14:08-0400 Body weight 61.01 kg Merdeith Bee RN [employer].; [email or web address]. 01-28-2015 14:08-0400 Diastolic blood pressure 92 mm[Hg] Meredith Bee RN [employer].; [email or web address]. 01-28-2015 14:08-0400 Heart rate 90 /min Meredith Bee RN [place] [email or web address]. 01-28-2015 14:08-0400 Systolic blood pressure 154 mm[Hg] Meredith Bee RN [employer].; [employer] 10-28-2014 13:36-0500 Body height 157.48 cm Meredith Bee RN [employer].; [email or web address] 10-28-2014 13:36-0500 Body mass index (BMI) [Ratio] 23.78 kg/m2 Meredith Bee RN [employer].; [employer]. 10-28-2014 13:36-0500 Body surface area Derived from formula 1.59 m2 Meredith Bee RN [employer].; [employer] 10-28-2014 13:36-0500 Body temperature 99.2 [degF] Meredith Bee RN [employer].; [employer] 10-28-2014 13:36-0500 Body weight 58.97 kg Meredith Bee RN [employer].; [employer]. 10-28-2014 13:36-0500 Diastolic blood pressure 88 mm[Hg] Meredith Bee RN [employer].; [email or web address]. 10-28-2014 13:36-0500 Heart rate 112 /min Meredith Bee RN [employer].; [employer] 10-28-2014 13:36-0500 Systolic blood pressure 141 mm[Hg] Meredith Bee RN [employer].; [email or web address] 10-06-2014 11:29-0500 Body height 157.48 cm Darling Paulson RN Work Phone: [employer].; [email or web address] 10-06-2014 11:29-0500 Body mass index (BMI) [Ratio] 24.33 kg/m2 Darling Paulson RN Work Phone: [employer].; [employer] 10-06-2014 11:29-0500 Body surface area Derived from formula 1.61 m2 Darling Paulson RN Work Phone: [employer].; [employer] 10-06-2014 11:29-0500 Body weight 60.33 kg Darling Paulson RN Work Phone: [employer].; [employer] 10-06-2014 11:29-0500 Diastolic blood pressure 86 mm[Hg] Darling Paulson RN Work Phone: [employer].; [employer] 10-06-2014 11:29-0500 Heart rate 100 /min Darling Paulson RN Work Phone: [employer].; [employer] 10-06-2014 11:29-0500 Systolic blood pressure 135 mm[Hg] Darling Hernandez N Work Phone: [employer].; [email or web address] 07-10-2014 14:57-0400 Body height 157.48 cm Darling Paulson RN Work Phone: [employer].; [employer] 07-10-2014 14:57-0400 Body mass index (BMI) [Ratio] 23.78 kg/m2 Darling Paulson RN Work Phone: [employer].; [email or web address] 07-10-2014 14:57-0400 Body surface area Derived from formula 1.59 m2 Darling Paulson RN Work Phone: [email or web address].; [email or web address] 07-10-2014 14:57-0400 Body weight 58.97 kg Darling Paulson RN Work Phone: [email or web address].; [email or web address] 07-10-2014 14:57-0400 Diastolic blood pressure 84 mm[Hg] Darling Paulson RN Work Phone: [employer].; [email or web address]. 07-10-2014 14:57-0400 Heart rate 80 /min Darling Paulson RN Work Phone: [employer].; [employer] 07-10-2014 14:57-0400 Systolic blood pressure 129 mm[Hg] Darling Mar Work Phone: [employer].; [employer] 02-18-2014 08:28-0400 Body height 157.48 cm [facility] [email or web address] 02-18-2014 08:28-0400 Body mass index (BMI) [Ratio] 24.14 kg/m2 [facility]zon [facility] [email or web address]. 02-18-2014 08:28-0400 Body surface area Derived from formula 1.6 m2 [facility]zon [facility].; [email or web address]. 02-18-2014 08:28-0400 Body temperature 98.4 [degF] Sheela Pinzon LPN [email or web address].; [employer], [employer]. 02-18-2014 08:28-0400 Body weight 59.88 kg Sheela [facility]zon [facility] [employer].; [email or web address]. 02-18-2014 08:28-0400 Diastolic blood pressure 81 mm[Hg] Sheela Pinzon LPN [email or web address]. 02-18-2014 08:28-0400 Heart rate 85 /min Sheela Pinzon LPN [email or web address]. 02-18-2014 08:28-0400 Systolic blood pressure 118 mm[Hg] Sheela Gamez h PAULO [employer], [employer]. 12-22-2013 11:47-0400 Body height 157.48 cm Lis Brantley PA-C Work Phone: [employer].; [employer] 12-22-2013 11:47-0400 Body temperature 97.7 [degF] Lis Jemal Pin or Peg PA-C Work Phone: [employer].; [employer] 12-22-2013 11:47-0400 Diastolic blood pressure 80 mm[Hg] Lis Jemal Pin [employer] Peg PA-C Work Phone: [employer].; [employer] 12-22-2013 11:47-0400 Heart rate 90 /min [employer] Jemal Pin or Peg PA-C Work Phone: [email or web address] 12-22-2013 11:47-0400 Systolic blood pressure 126 mm[Hg] [employer]gorith[employer] Jemal Pin or Peg PA-C Work Phone: [employer] 12-16-2013 14:40-0400 Body height 157.48 cm Darling Paulson RN Work Phone: [email or web address] 12-16-2013 14:40-0400 Body mass index (BMI) [Ratio] 24.51 kg/m2 Darling Paulson RN Work Phone: [employer].; [employer] 12-16-2013 14:40-0400 Body surface area Derived from formula 1.61 m2 Darling Paulson RN Work Phone: [employer].; [employer] 12-16-2013 14:40-0400 Body weight 60.78 kg Darling Paulson RN Work Phone: [email or web address] 12-16-2013 14:40-0400 Diastolic blood pressure 83 mm[Hg] Darling Paulson RN Work Phone: [email or web address].; [employer] 12-16-2013 14:40-0400 Heart rate 82 /min Darling Paulson RN Work Phone: [employer].; [email or web address] 12-16-2013 14:40-0400 Systolic blood pressure 130 mm[Hg] Darling Mar Work Phone: [employer].; [employer] 11-29-2013 08:56-0500 Body height 157.48 cm [facility] [email or web address] 11-29-2013 08:56-0500 Body mass index (BMI) [Ratio] 23.23 kg/m2 Sheela M [place] MEASUREMENT PSYCHOLOGIST [email or web address].; [email or web address] 11-29-2013 08:56-0500 Body surface area Derived from formula 1.58 m2 Sheela Soareslabach MEASUREMENT PSYCHOLOGIST [employer].; [email or web address]. 11-29-2013 08:56-0500 Body weight 57.61 kg Sheela Englishach MEASUREMENT PSYCHOLOGIST [employer].; [email or web address]. 11-29-2013 08:56-0500 Diastolic blood pressure 80 mm[Hg] Sheela Mushtaq SoaresAlberta MEASUREMENT PSYCHOLOGIST [email or web address].; [email or web address]. 11-29-2013 08:56-0500 Heart rate 93 /min Sheela Englishach MEASUREMENT PSYCHOLOGIST [employer].; [email or web address] 11-29-2013 08:56-0500 Systolic blood pressure 124 mm[Hg] Sheela [place] MEASUREMENT PSYCHOLOGIST [email or web address] 10-23-2013 13:29-0500 Body height 157.48 cm Meredith Bee RN [email or web address] 10-23-2013 13:29-0500 Body mass index (BMI) [Ratio] 23.81 kg/m2 Meredith Bee RN [email or web address] 10-23-2013 13:29-0500 Body surface area Derived from formula 1.59 m2 Meredith Bee RN [employer] 10-23-2013 13:29-0500 Body temperature 98.2 [degF] Meredith Bee RN [email or web address] 10-23-2013 13:29-0500 Body weight 59.06 kg Meredith Bee RN [email or web address] 10-23-2013 13:29-0500 Diastolic blood pressure 90 mm[Hg] Meredith Bee RN [email or web address] 10-23-2013 13:29-0500 Heart rate 108 /min Meredith Bee RN [email or web address] 10-23-2013 13:29-0500 Inhaled oxygen concentration 20 % Meredith Bee RN [email or web address] 10-23-2013 13:29-0500 SaO2% (BldA) [Mass fraction] 98 % Meredith Bee RN [email or web address] 10-23-2013 13:29-0500 Systolic blood pressure 131 mm[Hg] Meredith Bee RN [email or web address] 08-22-2013 13:55-0500 Body height 157.48 cm Sheela Pinzon LPN [email or web address] 08-22-2013 13:55-0500 Body mass index (BMI) [Ratio] 22.86 kg/m2 Sheela Pinzon LPN [email or web address] 08-22-2013 13:55-0500 Body surface area Derived from formula 1.57 m2 Sheela Pinzon LPN [email or web address] 08-22-2013 13:55-0500 Body temperature 98.1 [degF] Sheela Pinzon LPN [email or web address] 08-22-2013 13:55-0500 Body weight 56.7 kg Sheela Pinzon LPN [email or web address] 08-22-2013 13:55-0500 Diastolic blood pressure 82 mm[Hg] Sheela M [place] [facility] [email or web address]. 08-22-2013 13:55-0500 Heart rate 99 /min Sheela Pinzon LPN [email or web address] 08-22-2013 13:55-0500 Inhaled oxygen concentration 20 % [facility]htaq [facility] [employer] 08-22-2013 13:55-0500 SaO2% (BldA) [Mass fraction] 97 % Sheela Landin [place] [facility] [employer] 08-22-2013 13:55-0500 Systolic blood pressure 142 mm[Hg] Sheela M Vera h [facility] [employer] 07-21-2013 13:52-0400 Body height 157.48 cm Darling Paulson RN Work Phone: [email or web address] 07-21-2013 13:52-0400 Body mass index (BMI) [Ratio] 23.59 kg/m2 Darling Paulson RN Work Phone: [email or web address] 07-21-2013 13:52-0400 Body surface area Derived from formula 1.59 m2 Darling Paulson RN Work Phone: [email or web address] 07-21-2013 13:52-0400 Body weight 58.51 kg Darling Paulson RN Work Phone: [email or web address] 07-21-2013 13:52-0400 Diastolic blood pressure 92 mm[Hg] Darling Paulson RN Work Phone: [email or web address] 07-21-2013 13:52-0400 Heart rate 89 /min Darling Paulson RN Work Phone: [email or web address] 07-21-2013 13:52-0400 Systolic blood pressure 141 mm[Hg] Darling Mar Work Phone: [employer] 06-23-2013 14:50-0400 Body height 157.48 cm Sheela Barragan MD Work Phone: [employer] 06-23-2013 14:50-0400 Body mass index (BMI) [Ratio] 23.59 kg/m2 Sheela Barragan MD Work Phone: [employer] 06-23-2013 14:50-0400 Body surface area Derived from formula 1.59 m2 Sheela Barragan MD Work Phone: [email or web address] 06-23-2013 14:50-0400 Body weight 58.51 kg Sheela Barragan MD Work Phone: [email or web address] 06-23-2013 14:50-0400 Diastolic blood pressure 96 mm[Hg] Sheela Barragan MD Work Phone: [employer] 06-23-2013 14:50-0400 Heart rate 84 /min Sheela Barragan MD Work Phone: [email or web address] 06-23-2013 14:50-0400 Systolic blood pressure 140 mm[Hg] Sheela Barragan MD Work Phone: [email or web address] 03-11-2013 14:38-0400 Body weight 57.61 kg Neilee L Vess MEASUREMENT PSYCHOLOGIST [employer] 03-11-2013 14:38-0400 Diastolic blood pressure 92 mm[Hg] Neilee L Vess MEASUREMENT PSYCHOLOGIST [email or web address] 03-11-2013 14:38-0400 Heart rate 89 /min Neilee L Vess MEASUREMENT PSYCHOLOGIST [place] [employer] [facility].; [facility]. 03-11-2013 14:38-0400 Systolic blood pressure 151 mm[Hg] Kesha Shaw LPN [place] [employer] [facility].; [employer] 08-12-2012 14:08-0500 Body height 157.48 cm Meredith Bee RN [facility].; [employer] 08-12-2012 14:08-0500 Body mass index (BMI) [Ratio] 23.16 kg/m2 Meredith Bee RN [place] [employer] [facility].; [employer] 08-12-2012 14:08-0500 Body surface area Derived from formula 1.57 m2 Meredith Bee RN [place] [employer] [facility].; [email or web address] 08-12-2012 14:08-0500 Body temperature 98.3 [degF] Meredith Bee RN [place] [employer] [facility].; [employer] 08-12-2012 14:08-0500 Body weight 57.43 kg Meredith Bee RN [employer] [facility].; [email or web address]. 08-12-2012 14:08-0500 Diastolic blood pressure 95 mm[Hg] Meredith Bee RN [place] [employer] [facility].; [employer] 08-12-2012 14:08-0500 Heart rate 95 /min Meredith Bee RN [place] [employer] [facility].; [employer] 08-12-2012 14:08-0500 Systolic blood pressure 139 mm[Hg] Meredith Bee RN [email or web address] 03-19-2012 15:03-0400 Body height 157.48 cm Darling Paulson RN Work Phone: [email or web address] 03-19-2012 15:03-0400 Body mass index (BMI) [Ratio] 23.78 kg/m2 Darling Paulson RN Work Phone: [email or web address] 03-19-2012 15:03-0400 Body surface area Derived from formula 1.59 m2 Darling Paulson RN Work Phone: [employer] 03-19-2012 15:03-0400 Body weight 58.97 kg Darling Paulson RN Work Phone: [employer] 03-19-2012 15:03-0400 Diastolic blood pressure 98 mm[Hg] Darling Paulson RN Work Phone: [employer] 03-19-2012 15:03-0400 Heart rate 90 /min Darling Paulson RN Work Phone: [employer] 03-19-2012 15:03-0400 Systolic blood pressure 137 mm[Hg] Darling Hernandez N Work Phone: [employer] 03-05-2012 14:11-0400 Body height 157.48 cm Darling Paulson RN Work Phone: [email or web address] 03-05-2012 14:11-0400 Body mass index (BMI) [Ratio] 23.78 kg/m2 Darling Paulson RN Work Phone: [employer] 03-05-2012 14:11-0400 Body surface area Derived from formula 1.59 m2 Darling Paulson RN Work Phone: [email or web address] 03-05-2012 14:110400 Body weight 58.97 kg Darling Paulson RN Work Phone: [employer] 03-05-2012 14:11-0400 Diastolic blood pressure 80 mm[Hg] Darling Paulson RN Work Phone: [email or web address] 03-05-2012 14:11-0400 Heart rate 90 /min Darling Paulson RN Work Phone: [email or web address] 03-05-2012 14:11-0400 Systolic blood pressure 127 mm[Hg] Darling Hernandez N Work Phone: [employer] 01-23-2012 13:43-0400 Body height 157.48 cm Darling Paulson RN Work Phone: [employer] 01-23-2012 13:43-0400 Body mass index (BMI) [Ratio] 23.78 kg/m2 Darling Paulson RN Work Phone: [employer] 01-23-2012 13:43-0400 Body surface area Derived from formula 1.59 m2 Darling Paulson RN Work Phone: [email or web address] 01-23-2012 13:43-0400 Body temperature 98.6 [degF] Darling Paulson RN Work Phone: [email or web address] 01-23-2012 13:43-0400 Body weight 58.97 kg Darling Paulson RN Work Phone: [employer] 01-23-2012 13:43-0400 Diastolic blood pressure 88 mm[Hg] Darling Paulson RN Work Phone: [employer] 01-23-2012 13:43-0400 Heart rate 89 /min Darling Paulson RN Work Phone: [employer] 01-23-2012 13:43-0400 Systolic blood pressure 138 mm[Hg] Darling Hernandez N Work Phone: [employer] 10-05-2011 15:14-0500 Body height 157.48 cm Emy Edwards LPN Work Phone: [employer] Work Phone: 10-05-2011 15:14-0500 Body mass index (BMI) [Ratio] 24.14 kg/m2 [facility] Work Phone: [email or web address] Work Phone: 10-05-2011 15:14-0500 Body surface area Derived from formula 1.[address] [facility] Work Phone: [employer] Work Phone: 10-05-2011 15:14-0500 Body weight 59.[address] [facility] Work Phone: [employer] Work Phone: 10-05-2011 15:14-0500 Diastolic blood pressure 85 mm[Hg] [facility] Work Phone: [employer] Work Phone: 10-05-2011 15:14-0500 Heart rate 86 /min [facility] Work Phone: [employer] Work Phone: 10-05-2011 15:14-0500 Systolic blood pressure 131 mm[Hg] [facility] Work Phone: [employer] Work Phone: 09-21-2011 15:10-0500 Body height 157.48 cm Darling Paulson RN Work Phone: [employer] 09-21-2011 15:10-0500 Body mass index (BMI) [Ratio] 24.14 kg/m2 Darling Paulson RN Work Phone: [email or web address] 09-21-2011 15:10-0500 Body surface area Derived from formula 1.6 m2 Darling Paulson RN Work Phone: [employer] 09-21-2011 15:10-0500 Body weight 59.88 kg Darling Paulson RN Work Phone: [employer] 09-21-2011 15:10-0500 Diastolic blood pressure 84 mm[Hg] Darling Paulson RN Work Phone: [email or web address] 09-21-2011 15:10-0500 Heart rate 91 /min Darling Paulson RN Work Phone: [email or web address] 09-21-2011 15:10-0500 Systolic blood pressure 128 mm[Hg] Darling Hernandez N Work Phone: [employer] 06-22-2011 13:31-0400 Body height 157.48 cm Emy Grace MEASUREMENT PSYCHOLOGIST Work Phone: [employer] 06-22-2011 13:31-0400 Body mass index (BMI) [Ratio] 24.51 kg/m2 Emy Grace MEASUREMENT PSYCHOLOGIST Work Phone: [employer] 06-22-2011 13:31-0400 Body surface area Derived from formula 1.61 m2 Emy Grace MEASUREMENT PSYCHOLOGIST Work Phone: [email or web address] 06-22-2011 13:31-0400 Body weight 60.78 kg Emy Grace MEASUREMENT PSYCHOLOGIST Work Phone: [email or web address] 06-22-2011 13:31-0400 Diastolic blood pressure 90 mm[Hg] Emy Grace MEASUREMENT PSYCHOLOGIST Work Phone: [employer] 06-22-2011 13:31-0400 Heart rate 89 /min Emy Edwards MEASUREMENT PSYCHOLOGIST Work Phone: [employer] 06-22-2011 13:31-0400 Systolic blood pressure 143 mm[Hg] Emy Finey MEASUREMENT PSYCHOLOGIST Work Phone: [employer] 01-09-2011 14:13-0400 Body height 157.48 cm Darling Paulson RN Work Phone: [email or web address] 01-09-2011 14:13-0400 Body mass index (BMI) [Ratio] 23.78 kg/m2 Darling Paulson RN Work Phone: [employer] 01-09-2011 14:13-0400 Body surface area Derived from formula 1.59 m2 Darling Paulson RN Work Phone: [employer] 01-09-2011 14:13-0400 Body weight 58.97 kg Darling Paulson RN Work Phone: [employer] 01-09-2011 14:13-0400 Diastolic blood pressure 91 mm[Hg] Darling Paulson RN Work Phone: [employer] 01-09-2011 14:13-0400 Heart rate 109 /min Darling Paulson RN Work Phone: [employer] 01-09-2011 14:13-0400 Systolic blood pressure 137 mm[Hg] Darling Mar Work Phone: [employer] 11-28-2010 09:53-0500 Body weight 58.51 kg Sheela Barragan MD Work Phone: [employer] 11-28-2010 09:53-0500 Diastolic blood pressure 85 mm[Hg] Sheela Barragan MD Work Phone: [employer] 11-28-2010 09:53-0500 Heart rate 92 /min Sheela Barragan MD Work Phone: [employer] 11-28-2010 09:53-0500 Systolic blood pressure 132 mm[Hg] Sheela Barragan MD Work Phone: [employer] Encounters Encounter Date Encounter Type Care Provider Facility Start: 09-23-2023 ambulatory SPANGLER Becky FUENTES [facility] Start: 09-08-2023 End: 09-08-2023 ambulatory [address] [facility] Start: 09-03-2023 End: 09-03-2023 Patient encounter status Virgil Pena Fuentes PA-C Work Phone: [email or web address] Start: 09-03-2023 End: 09-03-2023 Virgil Fuentes PA-C Work Phone: [employer] Start: 08-31-2023 End: 08-31-2023 Office outpatient visit 15 minutes Virgil Fuentes PA-C Work Phone: [employer] Start: 08-31-2023 End: 08-31-2023 Virgil Fuentes PA-C Work Phone: [email or web address] Start: 08-02-2023 End: 08-02-2023 Office outpatient visit 15 minutes Virgil Fuentes PA-C Work Phone: [email or web address] Start: 04-16-2023 End: 04-16-2023 Office outpatient visit 15 minutes Virgil Fuentes PA-C Work Phone: [email or web address] Start: 02-27-2023 End: 03-04-2023 ambulatory MELISSA PETERSON TISSUE REWINDER-HAND SCRAPER Facility:[facility] Start: 01-31-2023 End: 01-31-2023 Virgil Fuentes PA-C Work Phone: [email or web address] Start: 01-25-2023 End: 01-25-2023 ambulatory VIRGIL Pena [facility] [place] Start: 01-09-2023 End: 01-09-2023 ambulatory MELISSA STEELE [facility] Start: 10-16-2022 End: 10-16-2022 Office outpatient visit 25 minutes Virgil Fuentes PA-C Work Phone: [email or web address] Start: 08-23-2022 End: 08-23-2022 Office outpatient visit 15 minutes Virgil Fuentes PA-C Work Phone: [email or web address] Start: 06-16-2022 End: 06-16-2022 Virgil Fuentes PA-C Work Phone: [email or web address] Start: 06-09-2022 End: 06-09-2022 Virgil Fuentes PA-C Work Phone: [email or web address] Start: 06-07-2022 End: 06-07-2022 Virgil Fuentes PA-C Work Phone: [email or web address] Start: 12-23-2021 End: 12-23-2021 Virgil Fuentes PA-C Work Phone: [email or web address] Start: 12-19-2021 End: 12-19-2021 Virgil Fuentes PA-C Work Phone: [email or web address] Start: 12-16-2021 End: 12-16-2021 Ivrgil Fuentes PA-C Work Phone: [email or web address] Start: 12-14-2021 End: 12-14-2021 Virgil Fuentes PA-C Work Phone: [employer] Start: 12-09-2021 End: 12-09-2021 Virgil Fuentes PA-C Work Phone: [email or web address] Start: 11-30-2021 End: 11-30-2021 Virgil Fuentes PA-C Work Phone: [email or web address] Start: 11-24-2021 End: 11-24-2021 Virgil Fuentes PA-C Work Phone: [employer] Start: 11-23-2021 End: 11-23-2021 Virgil Fuentes PA-C Work Phone: [employer] Start: 11-17-2021 End: 11-17-2021 Virgil Fuentes PA-C Work Phone: [email or web address] Start: 08-17-2021 End: 08-17-2021 Virgil Fuentes PA-C Work Phone: [email or web address] Start: 08-15-2021 End: 08-15-2021 Office outpatient visit 15 minutes Virgil Fuentes PA-C Work Phone: [email or web address] Start: 07-05-2020 End: 07-05-2020 Office outpatient visit 15 minutes Virgil Fuentes PA-C Work Phone: [email or web address] Start: 06-21-2020 End: 06-21-2020 Medical examinations/reports status Virgil Fuentes PA-C Work Phone: [email or web address] Start: 06-21-2020 End: 06-21-2020 Virgil Fuentes PA-C Work Phone: [email or web address] Start: 05-06-2020 End: 05-06-2020 Virgil Fuentes PA-C Work Phone: [email or web address] Start: 05-04-2020 End: 05-05-2020 Virgil Fuentes PA-C Work Phone: [email or web address] Start: 04-01-2020 End: 04-01-2020 Virgil Fuentes PA-C Work Phone: [email or web address] Start: 09-29-2019 End: 09-29-2019 Virgil Fuentes PA-C Work Phone: [email or web address] Start: 09-11-2019 End: 09-11-2019 Office outpatient visit 15 minutes Virgil Fuentes PA-C Work Phone: [employer] Start: 06-03-2019 End: 06-03-2019 Office outpatient visit 15 minutes Virgil Fuentes PA-C Work Phone: [email or web address] Start: 02-18-2019 End: 02-18-2019 Virgil Fuentes PA-C Work Phone: [email or web address] Start: 02-10-2019 End: 02-10-2019 Office outpatient visit 15 minutes Virgil Fuentes PA-C Work Phone: [employer] Start: 02-05-2019 End: 02-10-2019 Virgil Fuentes PA-C Work Phone: [email or web address] Start: 01-27-2019 End: 01-28-2019 Virgil Fuentes PA-C Work Phone: [email or web address] Start: 01-07-2019 End: 01-07-2019 Office outpatient visit 15 minutes Virgil Fuentes PA-C Work Phone: [employer] Start: 01-02-2019 End: 01-02-2019 Virgil Fuentes PA-C Work Phone: [employer] Start: 11-27-2018 End: 11-27-2018 Virgil Fuentes PA-C Work Phone: [email or web address] Start: 11-26-2018 End: 11-26-2018 Virgil Fuentes PA-C Work Phone: [email or web address] Start: 08-15-2018 End: 08-20-2018 Virgil Fuentes PA-C Work Phone: [email or web address] Start: 08-14-2018 End: 08-14-2018 Office outpatient visit 10 minutes Virgil Fuentes PA-C Work Phone: [email or web address] Start: 06-24-2018 End: 06-24-2018 Virgil Fuentes PA-C Work Phone: [email or web address] Start: 06-04-2018 End: 06-04-2018 Office outpatient visit 10 minutes Virgil Fuentes PA-C Work Phone: [email or web address] Start: 06-19-2017 End: 06-19-2017 Office outpatient visit 10 minutes Virgil Fuentes PA-C Work Phone: [email or web address] Start: 04-04-2017 End: 04-04-2017 Office outpatient visit 15 minutes Virgil Fuentes PA-C Work Phone: [email or web address] Start: 04-02-2017 End: 04-02-2017 Virgil Fuentes PA-C Work Phone: [email or web address] Start: 03-28-2017 End: 04-02-2017 Virgil Fuentes PA-C Work Phone: [email or web address] Start: 10-04-2016 End: 10-04-2016 Medical examinations/reports status Virgil Fuentes PA-C Work Phone: [email or web address] Start: 10-04-2016 End: 10-04-2016 Virgil Fuentes PA-C Work Phone: [email or web address] Start: 08-15-2016 End: 08-15-2016 Virgil Fuentes PA-C Work Phone: [email or web address] Start: 07-31-2016 End: 07-31-2016 Virgil Fuentes PA-C Work Phone: [email or web address] Start: 02-01-2016 End: 02-01-2016 Office outpatient visit 25 minutes Virgil Fuentes PA-C Work Phone: [email or web address] Start: 12-23-2015 End: 12-23-2015 Virgil Fuentes PA-C Work Phone: [email or web address] Start: 11-22-2015 End: 11-22-2015 Virgil Fuentes PA-C Work Phone: [email or web address] Start: 11-15-2015 End: 11-15-2015 Virgil Fuentes PA-C Work Phone: [email or web address] Start: 10-26-2015 End: 10-26-2015 Patient encounter status Virgil Fuentes PA-C Work Phone: [email or web address] Start: 10-26-2015 End: 10-26-2015 Periodic preventive med est patient 40-64yrs Virgil Fuentes PA-C Work Phone: [email or web address] Start: 07-19-2015 End: 07-19-2015 Office outpatient visit 25 minutes Virgil Fuentes PA-C Work Phone: [email or web address] Start: 01-28-2015 End: 01-28-2015 Virgil Fuentes PA-C Work Phone: [email or web address] Start: 10-28-2014 End: 10-28-2014 Virgil Fuentes PA-C Work Phone: [email or web address] Start: 10-20-2014 End: 10-20-2014 Virgil Fuentes PA-C Work Phone: [email or web address] Start: 10-06-2014 End: 10-06-2014 Office outpatient visit 15 minutes Virgil Fuentes PA-C Work Phone: [email or web address] Start: 07-10-2014 End: 07-10-2014 Periodic preventive med est patient 40-64yrs Virgil Fuentes PA-C Work Phone: [email or web address] Start: 07-10-2014 End: 07-10-2014 Routine gynecological examination Darling Paulson RN Work Phone: [email or web address] Start: 05-19-2014 End: 05-19-2014 Virgil Fuentes PA-C Work Phone: [email or web address] Start: 02-18-2014 End: 02-18-2014 Virgil Fuentes PA-C Work Phone: [email or web address] Start: 02-18-2014 End: 02-18-2014 Virgil Fuentes PA-C Work Phone: [email or web address] Start: 12-22-2013 End: 12-22-2013 Virgil Fuentes PA-C Work Phone: [email or web address] Start: 12-16-2013 End: 12-16-2013 Virgil Fuentes PA-C Work Phone: [email or web address] Start: 11-29-2013 End: 11-29-2013 Virgil Fuentes PA-C Work Phone: [email or web address] Start: 10-23-2013 End: 10-23-2013 Virgil Fuentes PA-C Work Phone: [email or web address] Start: 08-22-2013 End: 08-22-2013 Virgil Fuentes PA-C Work Phone: [email or web address] Start: 07-21-2013 End: 07-21-2013 Virgil Fuentes PA-C Work Phone: [email or web address] Start: 06-23-2013 End: 06-23-2013 Routine gynecological examination Darling Paulson RN Work Phone: [email or web address] Start: 06-23-2013 End: 06-23-2013 Virgil Fuentes PA-C Work Phone: [email or web address] Start: 05-12-2013 End: 05-12-2013 Virgil Fuentes PA-C Work Phone: [email or web address] Start: 03-11-2013 End: 03-11-2013 Virgil Fuentes PA-C Work Phone: [email or web address] Start: 08-12-2012 End: 08-12-2012 Virgil Fuentes PA-C Work Phone: [email or web address] Start: 03-19-2012 End: 03-19-2012 Virgil Fuentes PA-C Work Phone: [email or web address] Start: 03-05-2012 End: 03-05-2012 Routine gynecological examination Darling Paulson RN Work Phone: [email or web address] Start: 03-05-2012 End: 03-05-2012 Virgil Fuentes PA-C Work Phone: [email or web address] Start: 01-30-2012 End: 01-30-2012 Virgil Fuentes PA-C Work Phone: [email or web address] Start: 01-23-2012 End: 01-23-2012 Virgil Fuentes PA-C Work Phone: [email or web address] Start: 10-05-2011 End: 10-05-2011 Virgil Fuentes PA-C Work Phone: [email or web address] Start: 09-21-2011 End: 09-21-2011 Virgil Fuentes PA-C Work Phone: [email or web address] Start: 06-22-2011 End: 06-22-2011 Virgil Fuentes PA-C Work Phone: [email or web address] Start: 03-13-2011 End: 03-13-2011 Virgil Fuentes PA-C Work Phone: [email or web address] Start: 01-09-2011 End: 01-09-2011 Routine gynecological examination Virgil Fuentes PA-C Work Phone: [employer] [facility] Start: 01-09-2011 End: 01-09-2011 Virgil KUHN-C [facility] Phone[facility] Start: 11-28-2010 End: 11-28-2010 Virgil Fuentes PA-C Work Phone: [facility] Medical examinations/reports status Lis Brantley PA-C Work Phone: [facility]; [facility] Medical examinations/reports status Kesha Shaw LPN [facility]; [facility] Patient encounter status Sheela Barragan MD Work Phone: [facility]; [facility] Procedures Date Procedure Procedure Detail Performing Clinician Start: 09-03-2023 End: 09-03-2023 Depression screening Virgil KUHN -C Work Phone: Start: 09-03-2023 End: 09-03-2023 Flu immunize order/admin Virgil hernandez PA-C Work Phone: Start: 09-03-2023 End: 09-03-2023 Scr dep neg, no plan reqd Virgil norton PA-C Work Phone: Start: 06-07-2022 End: 06-15-2022 Diagnostic mammography computer-aided detcj bi Virgil KUHN-C Work Phone: Start: 06-07-2022 End: 01-30-2023 Us breast uni real time with image limited Virgil Fuentes PA-C Work Phone: Start: 12-19-2021 End: 12-21-2021 Us transvaginal Virgil KUHN- C Work Phone: Start: 12-16-2021 End: 12-21-2021 Us pelvic nonobstetric real-time image complete Virgil KUHN-C Work Phone: Start: 11-24-2021 End: 11-24-2021 Ct abdomen & pelvis w/contrast material Virgil Pena Fuentes PA-C Work Phone: Start: 11-17-2021 End: 12-09-2021 Dxa bone density study 1/> sites axial skkrish Pena Fuentes PA-C Work Phone: Start: 06-21-2020 End: 06-21-2020 Depression screening Lis Brantley PA -C Work Phone: Start: 06-21-2020 End: 06-21-2020 Scr dep neg, no plan reqd Lis Oliver coy PA-C Work Phone: Start: 06-12-2020 End: 06-12-2020 Lab findings surveillance Sheela luz MEASUREMENT PSYCHOLOGIST Start: 06-12-2020 End: 06-12-2020 Sheela Pinzon LP N Start: 06-11-2020 End: 06-11-2020 Screening mammography Sheela Pinzon LPN Start: 05-04-2020 End: 06-15-2020 Mammogram, screening Lis Brantley PA -C Work Phone: Start: 09-11-2019 End: 09-22-2019 Us abdominal real time w/image limited Lis Brantley PA-C Work Phone: Start: 02-17-2019 End: 02-17-2019 Screening colonoscopy Sheela Pinzon MEASUREMENT PSYCHOLOGIST Start: 06-04-2018 End: 06-18-2018 Us abdominal real time w/image documentation Lis Brantley PA-C Work Phone: Start: 12-28-2015 End: 12-28-2015 Bone density scan Sheela Pinzon LP N Start: 11-22-2015 End: 11-22-2015 Removal sutures under anesthesia same surgeon FLOAT NURSE Start: 11-15-2015 End: 11-15-2015 Exc b9 lesion mrgn xcp sk tg t/a/l 0.5 cm/< Sheela Barragan MD Work Phone: Start: 10-26-2015 End: 01-04-2016 Dxa bone density study 1/> sites axial gail Barragna MD Work Phone: Start: 10-26-2015 End: 10-26-2015 Microscopic examination of cervical Papanicolaou smear Sheela Pinzon LPN Start: 10-26-2015 End: 10-26-2015 Sheela Pinzon LP N Start: 07-19-2015 End: 01-04-2016 Mammogram, screening Sheela Barragan MD Work Phone: Start: 10-28-2014 End: 10-28-2014 Pure tone audiometry air only Lis CARVALHOC Work Phone: Start: 10-20-2014 End: 10-20-2014 Radex spine cervical 4 or 5 views Sheela Barragan MD Work Phone: Start: 02-18-2014 End: 02-20-2014 Us abdominal real time w/image documentation Virgil CARVALHOC Work Phone: Start: 06-23-2013 End: 07-17-2013 Mammogram, screening Sheela Barragan MD Work Phone: Start: 03-19-2012 End: 03-19-2012 Destruction premalignant lesion 1st Sheela Barragan MD Work Phone: Start: 10-05-2011 End: 10-05-2011 Removal skn tags tobacco prevention health educator fibrq tags any area upw/15 Sheela Barragan MD Work Phone: Start: 09-21-2011 End: 09-21-2011 Removal intrauterine device iud Sheela Barragan MD Work Phone: Start: 01-09-2011 End: 01-09-2011 Removal skn tags tobacco prevention health educator fibrq tags any area upw/15 Sheela Barragan MD Work Phone: Cholecystectomy Sheela olivo LPN Plan of Treatment Date Care Activity Detail Author Start: 08-31-2023 Screening digital br [place] tomosynthesis bi [employer] Start: 06-21-2020 Dxa bone density michael dy 1/> sites axial gail [employer] [facility]. Immunizations Immunization Date Immunization Notes Care Provider Leann erickson 09-03-2023 influenza, injectabl e, quadrivalent, preservative free Virgil Fuentes PA-C Work Phone: [facility] [employer] [place] [employer] [facility]. 09-01-2020 influenza, injectabl e, quadrivalent, contains preservative Virgil Fuentes PA-C Work Phone: [place] [employer] [facility] [facility] 12-05-2007 tetanus toxoid, redu lalit diphtheria toxoid, and acellular pertussis vaccine, adsorbed Virgil Fuentes PA-C Work Phone: [place] [employer] Payers Date Payer Category Payer Unknown [id number] 1965 Unknown [id number] 1965 Unknown [id number] 1965 Unknown [id number] Unknown [id number] Unknown Social History Date Type Detail Facility [facility]. [facility] [place] [employer] [facility] [employer] [facility] Partner had vasectomy. [facility] [employer] [facility].; [employer] [facility]. Never smoker. [employer] [facility].; [employer] [facility]. Summary Purpose Family History Arthritis Status:Active Comments:Mother. Coronary Artery Disease Status:Active Comments :Mother. Father. CABG age 66 (mom) Diabetes Mellitus Type II Status:Active Commen ts:Mother. Heart disease Status:Active Comments:Father. Brother. Hypertension Status:Active Comments:Mother. Father. Brother. Marfan's Syndrome Status:Active Comments:dad, brother, aunt, cousins with Marfan's. Hypertension Status:Inactive Arthritis Status:Active Comments:Mother. Coronary Artery Disease Status:Active Comments :Mother. Father. CABG age 66 (mom) Diabetes Mellitus Type II Status:Active Commen ts:Mother. Heart disease Status:Active Comments:Father. Brother. Hypertension Status:Active Comments:Mother. Father. Brother. Marfan's Syndrome Status:Active Comments:dad, brother, aunt, cousins with Marfan's. Hypertension Status:Inactive Arthritis Status:Active Comments:Mother. Coronary Artery Disease Status:Active Comments :Mother. Father. CABG age 66 (mom) Diabetes Mellitus Type II Status:Active Commen ts:Mother. Heart disease Status:Active Comments:Father. Brother. Hypertension Status:Active Comments:Mother. Father. Brother. Marfan's Syndrome Status:Active Comments:dad, brother, aunt, cousins with Marfan's. Hypertension Status:Inactive Arthritis Status:Active Comments:Mother. Coronary Artery Disease Status:Active Comments :Mother. Father. CABG age 66 (mom) Diabetes Mellitus Type II Status:Active Commen ts:Mother. Heart disease Status:Active Comments:Father. Brother. Hypertension Status:Active Comments:Mother. Father. Brother. Marfan's Syndrome Status:Active Comments:dad, brother, aunt, cousins with Marfan's. Hypertension Status:Inactive Arthritis Status:Active Comments:Mother. Coronary Artery Disease Status:Active Comments :Mother. Father. CABG age 66 (mom) Diabetes Mellitus Type II Status:Active Commen ts:Mother. Heart disease Status:Active Comments:Father. Brother. Hypertension Status:Active Comments:Mother. Father. Brother. Marfan's Syndrome Status:Active Comments:dad, brother, aunt, cousins with Marfan's. Hypertension Status:Inactive Arthritis Status:Active Comments:Mother. Coronary Artery Disease Status:Active Comments :Mother. Father. CABG age 66 (mom) Diabetes Mellitus Type II Status:Active Commen ts:Mother. Heart disease Status:Active Comments:Father. Brother. Hypertension Status:Active Comments:Mother. Father. Brother. Marfan's Syndrome Status:Active Comments:dad, brother, aunt, cousins with Marfan's. Hypertension Status:Inactive Advance Directives No Advanced Directives Records FoundNo Advanced Directives Records FoundNo Advanced Directives Records Found Additional Source Comments INFORMATION SOURCE (unrecogn ized section and content) DATE CREATED AUTHOR AUTHOR'S IVYRASHAD ATION 03/11/2023 [facility] ([place]) DATE CREATED AUTHOR AUTHOR'S PENNY ATION 09/23/2023 [facility] FOR RECORDS PERTAINING TO PATIENTS WHO ARE OR HAVE BEEN ENROLLED IN A CHEMICAL DEPENDENCY/SUBSTANCEABUSE PROGRAM, SOME INFORMATION MAY BE OMITTED. This clinical summary was aggregated from multiple sources. Caution should be exercised in using it in the provision of clinical care. This summary normalizes information from multiple sources, and as a consequence, information in this document may materially change the coding, format and clinical context of patient data. In addition, data may be omitted in some cases. CLINICAL DECISIONS SHOULD BE BASED ON THE PRIMARY CLINICAL RECORDS. [employer] provides no warranty or guarantee of the accuracy or completeness of information in this document.
[2023-12-13 05:07] LABS: Thyroid Peroxidase AB 44 IU/mL (0-34)
[2023-12-15 13:08] LABS: HPV APTIMA, High Risk Negative (Negative)
== END | disposition home or self-care (01) ==
LOC: LAB 15:24
PROVIDERS: PCP Physician Assistant; Referring Provider Nurse Practitioner Women's Health; Visit Provider Nurse Practitioner Women's Health
DX: Z13.29 Encounter for screening for other suspected endocrine disorder (principal); Z13.21 Encounter for screening for nutritional disorder; Z12.4 Encounter for screening for malignant neoplasm of cervix; R53.83 Other fatigue
CPT/HCPCS: 36415; 82306; 84439; 84443; 85025; 86376; 87624; 88175; G0145

== ENCOUNTER → 2024-07-28 | Outpatient (CLI) | payer OTHER, SELFPAY ==
--- NOTE | 2024-07-28 15:08 | BI_ITS ---
MAMMOGRAPHY - BILATERAL SCREENING REASON FOR EXAM: Female, 58 years old. Routine annual screening examination. PERTINENT HISTORY: Non-contributory. TECHNIQUE: Digital bilateral breast jose (3D mammographic acquisition) in the CC and MLO projections. 2-D mediolateral oblique (MLO) and craniocaudad (CC) views of both breasts were obtained. CAD: Full Field Digital Mammography with Computer Added Detection was performed. COMPARISON: Comparison is made with prior study dated July 26, 2023. FINDINGS: Breast Composition: There are scattered areas of fibroglandular density. There are no dominant masses or suspicious calcifications. Stable small bilateral axillary lymph nodes. No other significant abnormalities are identified. There has been no significant change since the prior study. BI/SCRN MAMM (CAD)W/JOSE BILAT IMPRESSION: Stable bilateral screening mammogram. Yearly follow-up mammogram recommended. (A) ASSESSMENT CATEGORY: BIRADS Category 2: Benign. A letter regarding these results will be sent to the patient by the facility within 30 days. Approximately 10% of breast cancers are not detected by mammography. A normal mammogram should not delay biopsy of a clinically suspicious abnormality. [id number] Electronically Signed: Talon Jacobson MD at 10:56 EDT ,
--- NOTE | 2024-07-28 15:33 | US_ITS ---
STUDY: ULTRASOUND TRANSVAGINAL CLINICAL: Female, 58 years old. Pelvic pain TECHNIQUE: Transvaginal COMPARISON: None. FINDINGS: Normal uterine size measuring 6.5 cm in maximal craniocaudal dimension. There are no myometrial masses. Normal endometrial thickness measuring 6 4 mm. There are no endometrial masses, and there is no fluid in the endometrial cavity. Normal uterine cervix. Right ovary not visualized Normal left ovary, measuring 1.8 x 1.1 x 0.8 cm. There are multiple follicles without a dominant cyst. There is no free fluid in the pelvis. Polycystic ovary disease: No. US/Transvaginal Non- IMPRESSION: No suspicious sonographic findings, endometrium normal for age. No suspicious cystic mass or free fluid Electronically Signed: Yash Mathews MD at 11:24 EDT ,
== END | disposition home or self-care (01) ==
LOC: OPBI 15:06
PROVIDERS: PCP Physician Assistant; Referring Provider Nurse Practitioner Women's Health; Visit Provider Nurse Practitioner Women's Health
DX: Z12.31 Encounter for screening mammogram for malignant neoplasm of breast (principal)
CPT/HCPCS: 76830; 77063; 77067

== ENCOUNTER → 2024-09-15 | Outpatient (CLI) | payer OTHER, SELFPAY ==
[2024-09-15 17:24] LABS: Free T3 2.5 pg/mL (2.18-3.98); T4 Total, Thyroxin 9.1 ug/dL (4.8-13.9)
[2024-09-17 04:07] LABS: Thyroid Peroxidase AB 28 IU/mL (0-34)
== END | disposition home or self-care (01) ==
LOC: LAB 15:59
PROVIDERS: PCP Physician Assistant; Referring Provider Obstetrics & Gynecology; Visit Provider Obstetrics & Gynecology
DX: R76.8 Other specified abnormal immunological findings in serum (principal); R93.89 Abnormal findings on diagnostic imaging of other specified body structures
CPT/HCPCS: 36415; 84436; 84443; 84481; 86376

== ENCOUNTER 2024-10-14 10:31 | Day surgery (SDC) | payer OTHER, SELFPAY ==
[2024-10-11 12:04] LABS: Hematocrit 40.2 % (37-47); Hemoglobin 13.4 g/dL (12.0-15.0); Mean Corp Hgb Conc 33.3 g/dL (32-36); Mean Corpuscular Hgb 31.8 pg (27.0-32.0); Mean Corpuscular Volume 95.3 fL (81-99); Mean Platelet Vol. 9.7 fl (6.2-12.0); Platelet Count 324 K/mm3 (150-450); RBC Distribution Width CV 13.2 % (11.6-14.6); RBC Distribution Width SD 46.6 fl (35.1-43.9); Red Blood Count 4.22 M/mm3 (4.2-5.4); White Blood Count 4.6 K/mm3 (4.4-11.0)
[2024-10-14] VITALS (8 sets, daily range): BP systolic 110–116; BP diastolic 72–82; PULSE 63–71; RESP 16; TEMP 36.6–36.8; O2SAT 92–100; BMI 25.4
--- NOTE | 2024-10-14 | EMB_PTH ---
PATIENT: [place]ISTY AND[place]EN [place] [facility] [id number] AGE/SX: 58/F ROOM: RE10/14/[address]: Dr. Liliana Champion DO : 1965 BED: DIS: 10/14/2024 SPEC #: [id number] RECD: 10/14/24 13:38 STATUS: NATHANAEL RESina #: [id number] ANDRZEJ: 10/14/24 00:[address]: Liliana Champion DEPT: SURGICAL PATHOLOGY RECD BY: Saturnino Wells ENTERED: 10/14/24 13:38 SP TYPE: ENDOM BX/C ANGELA DR: HATTIE Metzger Tissues: Endometrium, NOS Procedures: Surgery Specimen Level IV HEADER OPERATION: Hysteroscopy dilation and curettage PRE-OP DIAGNOSIS: Thickened endometrium post-menopausal TISSUE SUBMITTED: Endometrial curettings MICROSCOPIC DIAGNOSIS Endometrial curettings: Scant fragments of benign endometrial epithelium and squamous epithelium. See comment. SJ. 10/15/2024 COMMENT Clinical correlation and appropriate follow up are necessary. MICROSCOPIC DESCRIPTION Slides are reviewed. GROSS DESCRIPTION Received in fixative is one container labeled with the patient's name and designated Endometrial curettings. The specimen consists of a telfa pad with minimal amount of blood clot on it. No definitive tissue content present. The telfa pad is scraped yielding approximately 3mm of blood clot submitted in one cassette. mr 10/14/2024 TC:4 CPT:58049
--- NOTE | 2024-10-14 10:56 | PCM.HP.BLA ---
History and Physical Date of Admission: 10/14/24 Intake Vital Signs 01/14/2415:36 09/15/2415:19 09/15/2415:21 Height 5 ft 2 in 5 ft 2 in 5 ft 2 in Weight: 141 lb 5 oz BMI 25.8 BP 129/89 H Blood Pressure Location Lt brachial Position Sitting Respiration 18 Pulse 91 Pulse Source Monitor Pulse Oximetry (%) 95 Oxygen Delivery Method room air Intake Visit Reasons: surgical consult/pt does not agree with EMB prior Chief Complaint: surgical consult Allergies No Known Allergies Allergy (Unverified 09/15/24 15:24) Medications ?Medication ?Instructions ?Recorded ?Confirmed ?Type cetirizine 10 mg tablet (Zyrtec) 10 mg PO DAILY PRN 08/27/23 09/15/24 History docusate sodium 100 mg capsule 100 mg PO DAILY 08/27/23 09/15/24 History (Colace) metoprolol tartrate 25 mg tablet 25 mg PO DAILY 08/27/23 09/15/24 History pantoprazole 40 mg tablet,delayed 40 mg PO DAILY 08/27/23 09/15/24 History release sertraline 50 mg tablet 50 mg PO DAILY 08/27/23 09/15/24 History beta-sitosterol cplx-bitter cap PO 12/11/23 09/15/24 History orange-green tea-#19mn 3 mg-42 mg capsule magnesium 250 mg tablet 250 mg PO DAILY 12/11/23 09/15/24 History estradiol 0.05 mg/24 hr semiweekly 1 patch transdermal 2XW #24 ea 01/15/24 09/15/24 Rx transdermal patch (Vivelle-Dot) progesterone micronized 100 mg 100 mg PO QHS #90 caps 01/15/24 09/15/24 Rx capsule (Prometrium) Nurse's Note: Surgical consult, wants hysterectomy PFSH Medical History Osteopenia Hypertension Abnormal breast finding Surgical History S/P cholecystectomy Family History Mother DiabetesFather Heart diseaseMother Cancer Skin cancer Social History household members: spouse current occupational status: employed current occupation: [employer] Smoking Status: Never smoker alcohol intake: current alcohol intake frequency: holidays/special occasions only substance use type: does not use seatbelt use: always do you feel safe at home: Yes additional social history: - [employer] HPI surgical consult/pt does not agree with EMB prior Details: MISTY ANDERSEN is a 58 year old who presents for discussion about 6.5mm endometrium. This was picked up on ultrasound which was performed for bloating. She was taking progesterone at the time and stopped it. The bloating stopped. She is requesting to just take everything out. She states that her mother had a hysterectomy and thinks she should have one. She denies bleeding or cramping. Fhx of marfan's disease. Brother had an abdominal aneurysm and became a parapalegic after surgery then of complications. She denies ever being diagnosed with the condition. She was found to have a thyroid antibody elevation back in november of this year. History 2 Elective abortions Hx Para 2 Spontaneous abortions Hx # Term Pregnancies Ectopic pregnancies Hx # Pregnancies Multiple births # of living children 2 Past Pregnancies Del. Date Name GA/Weeks Outcome Route Bth Weight Infant Gen Labor Lgth Anesthesia Del Locatn Provider FOB Unknown Sheila 1988 Unknown Nelson 1996 ROS Const ROS Unobtainable: All systems reviewed & are unremarkable except as noted in H Resp Resp: Reports system reviewed and no additional complaints, except as documented; Denies cough GI GI: Reports as per HPI Psych Psych: Reports system reviewed and no additional complaints, except as documented Exam Const General: cooperative, healthy appearing, comfortable and no acute distress Resp Effort & Inspection: normal respiratory effort Skin General: no rashes or lesions noted Psych Appearance: grossly normal Speech and Movement: speech and movement normal Coding Level of Care Code Off vis,est,level 4 Diagnoses Thickened endometrium R93.89 Assessment and Plan Assessment and Plan (1) Thickened endometrium: Status: Acute Plan: After discussing the patient's diagnosis and treatment plan options, patient wishes to proceed with surgical management. She declines office endometrial biopsy and prefers OR D&C I have discussed with the patient the risks, benefits, and alternatives of the procedure which include but are not limited to risks of anesthesia, bleeding, infection, possible damage to bowel, bladder, or surrounding vasculature which could lead to additional surgery to evaluate any complications. Patient agrees to procedure and wishes to proceed. ACOG/uptodate references given for additional information regarding procedure. plan for hysteroscopy D&C Orders:
--- NOTE | 2024-10-14 11:48 | PCM.PRE.AN2 ---
ASA Classification* ASA Classification ASA Classification: 2 Assessment & Plan Anesthesia* Anesthesia Assessment Anesthesia Assessment: Discussed sedation and/or anesthesia options, risks, benefits, and alternatives with patient/parents/legal guardian/POA. Questions invited. The patient/parents/legal guardian/POA seems to understand and agrees to proceed with anesthesia plan. Reviewed the physical assessment, medical history, allergy history and patient home medications list prior to surgery/procedure/anesthetic and documented any changes. Performed airway and anesthesia risk assessments. Anesthesia Type Anesthesia Type: MAC History Source History Obtained from:: Patient and Chart Anesthesia Focused Assessment* Temperature: 98.2 F Pulse Rate: 71 Blood Pressure: 116/74 Respiratory Rate: 16 Pulse Ox: 100 Oxygen Delivery Method: Room Air Airway Assessment Mouth opens: >3 cm Mallampati Score: I Teeth Condition: Intact, Caps/Crowns (Patient has a couple crowns on molars. 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 When Was Last Pacemaker Check QUESTION #4 FULL TEXT: You/Your Family Experience fever (hyperthermia) with Anesthesia Last Oral Intake Last Oral intake: Last Oral Intake NPO since 08:30 10/14/24 10:52 Meds taken in AM with sips of Yes 10/14/24 10:52 water? Meds patient instructed to take am of surgery Any additional information?: Yes Meds taken in AM with sips of water?: Yes PONV PONV - offset proof press operator: PONV - offset proof press operator Female Yes 10/06/24 09:46 HX of Motion Sickness No 10/06/24 09:46 HX of N/V After Surgery No 10/06/24 09:46 Non-Smoker Yes 10/06/24 09:46 Duration of Surgery greater No 10/06/24 09:46 than 60 minutes Number of Risk Factors 2 10/06/24 09:46 PONV Score Moderate Risk 10/06/24 09:46 Height & Weight Height & Weight: Anesthesia: Height & Weight Height 5 ft 2 in 10/14/24 10:52 Weight: 63 kg 10/14/24 10:52 Body Mass Index (BMI) 25.4 10/14/24 10:52 Respiratory Assessment Respiratory Assessment - offset proof press operator: Respiratory Tract Infection Hx - offset proof press operator Hx Respiratory Tract Infection No 10/06/24 09:46 STOP Sleep Apnea STOP Sleep Apnea - offset proof press operator: STOP Sleep Apnea - offset proof press operator Hx Hypertension Yes: per pt, CONTROLLED ON 10/06/24 09:46 MEDS Hx Sleep Apnea No 10/06/24 09:46 CPAP BIPAP Do you snore loudly (louder No 10/06/24 09:46 than talking or can be heard Do you often feel tired/ No 10/06/24 09:46 fatigued/ sleepy during daytime? Has anyone observed you stop No 10/06/24 09:46 breathing during sleep? STOP Results Negative 10/06/24 09:46 QUESTION #5 FULL TEXT : Do you snore loudly (louder than talking or can be heard through closed doors)? Tobacco Use History Tobacco Use History - offset proof press operator: Tobacco Use History - offset proof press operator Tobacco Use Smoking Status Never smoker 10/06/24 09:46 Hx Tobacco Use No 10/06/24 09:46 Years Smoking Packs Smoked per Day Smoking Cessation Date was within the last 15 years Hx Smoking Cessation Date Hx Smoking Cessation Counseling Hematologic Medial History Hematologic Hx - offset proof press operator: Hematologic Medical Hx - filter screen cleaner Hx of Blood Transfusion No 10/06/24 09:46 Hx of Transfusion in last 3 No 10/06/24 09:46 Months Date of Last Transfusion (if within last 3 months) Ever experience any problems No 10/06/24 09:46 with transfusion(s)? Specify any problems Hx of Preganancy in last 3 No 10/06/24 09:46 Months Nurse Filling Out Transfusion MGRIFFITH 10/06/24 09:46 & Questions: Date: 10/06/24 10/06/24 09:46 Time: 09:48 10/06/24 09:46 Patient unable to answer at this time (ie. confused, unrespo /Reproduction History /Reproductive History - offset proof press operator: /Reproductive Hx- offset proof press operator Hx Now Gestational Age (in weeks): EDC: Hx Hx Para Hx Section SAB No 01/15/24 15:36 [facility] Medical History Wears contact lenses Wears glasses Post-menopausal Anxiety Arthritis History of hiatal hernia Gastric reflux Non-smoker History of echocardiogram Osteopenia Hypertension Abnormal breast finding Home Medications ?Medication ?Instructions ?Recorded ?Last Taken ?Type cetirizine 10 mg tablet (Zyrtec) 10 mg PO DAILY PRN allergy symptoms 08/27/23 Unknown History docusate sodium 100 mg capsule 100 mg PO DAILY 08/27/23 Unknown History (Colace) metoprolol tartrate 25 mg tablet 25 mg PO DAILY 08/27/23 10/14/24 History pantoprazole 40 mg tablet,delayed 40 mg PO DAILY 08/27/23 10/14/24 History release sertraline 50 mg tablet 50 mg PO DAILY 08/27/23 Unknown History magnesium 250 mg tablet 250 mg PO DAILY 12/11/23 Unknown History Allergy/AdvReac Type Severity Reaction Status Date / Time No Known Allergies Allergy Verified 10/14/24 10:49 Family History Mother Diabetes Father Heart disease Mother Cancer Skin cancer Surgical History History of thumb surgery History of esophagogastroduodenoscopy (EGD) History of colonoscopy S/P cholecystectomy Social History household members: spouse current occupational status: employed current occupation: [employer] Smoking Status: Never smoker alcohol intake: current alcohol intake frequency: holidays/special occasions only substance use type: does not use seatbelt use: always do you feel safe at home: Yes additional social history: - [employer] Review of Systems (Anesthesia) ROS Narrative System reviewed and no additional complaints, except as documented.
--- NOTE | 2024-10-14 12:13 | DCINST_ITS ---
Discharge Instructions Diet Discharge Diet: No restrictions DC O2, CPAP, BIPAP needs Home O2 Discharge instructions: No Dressing / Incision Discharge Activity: Return to Normal Activity, May Shower and May Take a Tub Bath (after 1 week) May resume sexual activity in: 1-2 weeks Weight Bearing Status: Weight bearing as tolerated Lifting Restrictions: none Dressing / Incision Call your doctor if you observe: Fever of 101 or Higher, Using more than 1 pad per hour, Shortness of breath and Uncontrolled pain Follow Up Care Please Follow Up With: Liliana Champion DO When: Call [phone] to schedule appointment. Test Results: Test results from this visit will be discussed in further detail at your follow- up appointment, if applicable. Discharge Plan Admission Primary Reason for Your Visit: hysteroscopy D&C Attending Provider: Liliana Champion Primary Care Provider: Lenka Fuentes Instructions Print Language: Unknown Discharge Orders/Prescriptions Prescriptions: Continued pantoprazole 40 mg tablet,delayed release (DR/EC) 40 mg PO DAILY sertraline 50 mg tablet 50 mg PO DAILY metoprolol tartrate 25 mg tablet 25 mg PO DAILY cetirizine [Zyrtec] 10 mg tablet 10 mg PO DAILY PRN (Reason: allergy symptoms) docusate sodium [Colace] 100 mg capsule 100 mg PO DAILY magnesium 250 mg tablet 250 mg PO DAILY Referrals / Follow Up: Lenka Fuentes PA [Primary Care Provider] - Disposition Disposition (needs filled in before D/C Order can be placed): Home, Self Care
--- NOTE | 2024-10-14 12:14 | PCM.OPRPT ---
Problems Associated Problem List Diagnoses (1) Thickened endometrium: Multi Select Codes Urinary/Genital Urinary/Genital CPT Codes: 07886 Hysteroscopy,EMC, Polypectomy Operative Report (Standard) Operative Information Date of Procedure: 10/14/24 Pre-Operative Diagnosis: thickened endometrium postmenopausal Post-Operative Diagnosis: thickened endometrium postmenopausal Surgery/Procedure Performed: hysteroscopy dilation and curettage package line operator: No Type of Anesthesia: MAC and Topical Anesth RN Documented Start/Stop Times: Operation Date: 10/14/24 12:00 Case Time Into Pre-Op 10/14/24 10:51 Anesthesia Start 10/14/24 12:05 Into Room 10/14/24 12:05 Out of Pre-Op 10/14/24 12:05 Procedure Start Time: 12:18 Procedure Stop Time: 12:27 Select all DRAINS/GRAFTS/IMPLANTS that apply: None Estimated Blood Loss: 5cc Specimen collected: Yes Description of specimen(s) removed: endometrial curetting's Description of surgery: Patient was prepped and draped in a normal sterile fashion under MAC anesthesia. A weighted speculum was placed in the vagina and the anterior lip of the cervix was grasped with a single-tooth tenaculum. A paracervical block was placed with 1% lidocaine. Cervix was progressively dilated to allow passage of a 5 mm hysteroscope. The lining was fully visualized and noted to have an atrophic endometrium. The uterus sounded to 4.5 cm. Curettage was performed and scant tissue was sent to pathology. All instruments were removed from the vagina and excellent hemostasis was noted. Patient was awoken and taken to recovery in stable condition. Surgical Findings: atrophic endometrium Complications Complications: No Admit VTE Documentation VTE Present on Admission: No VTE Mechan Device Prophylaxis: [facility] [place] Pharm Prophylaxis ordered?: No
[2024-10-14] MEDS: Lidocaine 1% (30 ml sdv) 30 ML Vial (12:22)
--- NOTE | 2024-10-14 12:43 | PCM.POST.ANE ---
Anesthesia: Postop Eval I Current Vital Signs Temperature: 97.8 F Pulse Rate: 67 Blood Pressure: 110/72 Respiratory Rate: 16 Pulse Ox: 94 Oxygen Delivery Method: Room Air Assessment Airway patent: Yes Spontaneous unlabored respirations: Yes Mental status: Awake and Calm nausea: No Vomiting: No Anesthesia Complication: No Fluid Hydration Crystalloid volume administer (ml): 30 Total IV fluid infused: 30 Progress Note Anesthesia document: Postop Eval 1 completed: Yes
--- NOTE | 2024-10-15 03:37 | POSTOPAN2_ITS ---
Anesthesia Postop Eval I Sum Postop Eval Completion status Anesthesia document: Postop Eval 1 completed: Yes Anesthesia Postop Eval I Summary Anesthesia Postop Eval I Summary: Anesthesia Postop Eval I: Assessment Summary Airway patent Yes 10/14/24 12:44 PRODUCTION ADMINISTRATIVE [email or web address] Spontaneous unlabored Yes 10/14/24 12:44 PRODUCTION ADMINISTRATIVE [email or web address] respirations Mental status Awake,Calm 10/14/24 12:44 PRODUCTION ADMINISTRATIVE [email or web address] nausea No 10/14/24 12:44 PRODUCTION ADMINISTRATIVE [email or web address] Vomiting No 10/14/24 12:44 PRODUCTION ADMINISTRATIVE [email or web address] Anesthesia Postop Eval I: Fluid Summary Crystalloid volume administer 30 10/14/24 12:44 PRODUCTION ADMINISTRATIVE [email or web address] (ml) Colloids volume administered ( ml) Blood Product volume administered (ml) Total IV fluid infused 30 10/14/24 12:44 PRODUCTION ADMINISTRATIVE [email or web address] Anesthesia Postop Eval I: Summary Notes Anesthesia Complication No 10/14/24 12:44 PRODUCTION ADMINISTRATIVE [email or web address] Anesthesia Complication Comment: Post-operative progress note Anesthesia: Postop Eval II Evaluation Mental status: Awake and Calm Pain Level: 1 nausea: No Vomiting: No Complications Anesthesia Complication: No
--- NOTE | 2024-10-15 03:37 | PCM.POSTANE2 ---
Anesthesia Postop Eval I Sum Postop Eval Completion status Anesthesia document: Postop Eval 1 completed: Yes Anesthesia Postop Eval I Summary Anesthesia Postop Eval I Summary: Anesthesia Postop Eval I: Assessment Summary Airway patent Yes 10/14/24 12:44 [email or web address] Spontaneous unlabored Yes 10/14/24 12:44 [email or web address] respirations Mental status Awake,Calm 10/14/24 12:44 [email or web address] nausea No 10/14/24 12:44 [email or web address] Vomiting No 10/14/24 12:44 [email or web address] Anesthesia Postop Eval I: Fluid Summary Crystalloid volume administer 30 10/14/24 12:44 [email or web address] (ml) Colloids volume administered ( ml) Blood Product volume administered (ml) Total IV fluid infused 30 10/14/24 12:44 HAND [email or web address] Anesthesia Postop Eval I: Summary Notes Anesthesia Complication No 10/14/24 12:44 [email or web address] Anesthesia Complication Comment: Post-operative progress note Anesthesia: Postop Eval II Evaluation Mental status: Awake and Calm Pain Level: 1 nausea: No Vomiting: No Complications Anesthesia Complication: No
== END 2024-10-14 13:35 | disposition home or self-care (01) ==
LOC: SDC 10:34 → AC 10:35
PROVIDERS: PCP Physician Assistant; Referring Provider Obstetrics & Gynecology; Visit Provider Obstetrics & Gynecology
PROC: (CPT 58120; principal; 2024-10-14 11:45)
DX: R93.89 Abnormal findings on diagnostic imaging of other specified body structures (principal); I10 Essential (primary) hypertension; Z79.899 Other long term (current) drug therapy
CPT/HCPCS: 58558; 00952; 36415; 85027; 86850; 86900; 86901; 88305; A4216; J2405